=== PATIENT | female | born 1990 | race Hispanic/Latino ===

== ENCOUNTER 2016-10-22 10:26 | Observation (INO) | payer MEDICAID ==
[2016-10-22 10:46] VITALS: BMI 23.3
[2016-10-22 10:48] VITALS: TEMP 99; O2SAT 98
--- NOTE | 2016-10-22 11:31 | ED PDOC ---
Arrival/HPI - General Chief Complaint: Abdominal Pain Time Seen by Provider: 10/22/16 11:00 Historian: Patient - History of Present Illness Narrative History of Present Illness (Text): 10/22/16 11:20 A 26 year old female, who denies any significant past medical history, presents to the emergency department complaining of diffuse suprapubic pain since yesterday evening. Patient notes mild associated non bloody watery diarrhea, but denies any fever, nausea, vomiting, hematuria, vaginal bleeding, vaginal discharge, or any other complaints at this time. Patient last menstrual cycle was on 09/15/16. Patient is not a smoker, drinker or drug user. PMD: None Time/Duration: Other (8-16 hours) Symptom Onset: Sudden Symptom Course: Unchanged Quality: Other ("pain") Activities at Onset: Rest Context: Home Associated Symptoms (Text): mild diarrhea Past Medical History - Provider Review Nursing Documentation Reviewed: Yes - Past History Past History: No Previous - Infectious Disease Hx of Infectious Diseases: None - Tetanus Immunization Tetanus Immunization: Unknown - Renal Hx Kidney Stones: Yes - Psychiatric Hx Substance Use: No - Anesthesia Hx Anesthesia: No Family/Social History - Physician Review Nursing Documentation Reviewed: Yes Family/Social History: Unknown Family HX Smoking Status: Never Smoked Hx Alcohol Use: No Hx Substance Use: No Allergies/Home Meds Allergies/Adverse Reactions: Allergies No Known Allergies Allergy (Verified 10/22/16 10:46) Home Medications: Home Meds Medication Instructions Recorded Confirmed No Known Home Med 10/22/16 10/22/16 Review of Systems - Physician Review All systems were reviewed & negative as marked: Yes - Review of Systems Constitutional: absent: Fevers Gastrointestinal: Abdominal Pain, Diarrhea. absent: Nausea, Vomiting Genitourinary Female: absent: Hematuria, Vaginal Bleeding, Vaginal Discharge Physical Exam Vital Signs Reviewed: Yes Vital Signs Temp Pulse Resp BP Pulse Ox 10/22/16 13:05 67 18 116/61 98 10/22/16 11:38 69 18 118/65 98 10/22/16 10:46 99 F 73 16 120/78 98 Temperature: Afebrile Blood Pressure: Normal Pulse: Regular Respiratory Rate: Normal Appearance: Positive for: Well-Appearing, Non-Toxic, Comfortable Pain Distress: None Mental Status: Positive for: Alert and Oriented X 3 - Systems Exam Head: Present: Atraumatic, Normocephalic Pupils: Present: PERRL Extroacular Muscles: Present: EOMI Conjunctiva: Present: Normal Mouth: Present: Moist Mucous Membranes Neck: Present: Normal Range of Motion Respiratory/Chest: Present: Clear to Auscultation, Good Air Exchange. No: Respiratory Distress, Accessory Muscle Use Cardiovascular: Present: Regular Rate and Rhythm, Normal S1, S2. No: Murmurs Abdomen: Present: Tenderness (mild diffuse suprapubic tenderness with palpation ; no right lower quadrant tenderness; no left lower quadrant tenderness), Normal Bowel Sounds. No: Distention, Peritoneal Signs, Rebound, Guarding Back: Present: Normal Inspection Upper Extremity: Present: Normal Inspection. No: Cyanosis, Edema Lower Extremity: Present: Normal Inspection. No: Edema Neurological: Present: GCS=15, CN II-XII Intact, Speech Normal Skin: Present: Warm, Dry, Normal Color. No: Rashes Psychiatric: Present: Alert, Oriented x 3, Normal Insight, Normal Concentration Medical Decision Making ED Course and Treatment: 10/22/16 11:20 Impression: A 26 year old female with suprapubic pain. Differential Diagnosis include but are not limited to: ovarian cyst vs. gastritis Plan: -- Transvaginal Ultrasound -- Labs -- Toradol if negative for -- Reassess and disposition Prior Visits: Notes and results from previous visits were reviewed. pt aware of results of sonogram. pt sleeping throughout ER stay, appears comfortable and better.The patient last presented to the emergency department on 03/27/16 for evaluation of right flank pain. Patient CT at the time showed a small nonobstructing left renal stone, no ureteral stones or hydronephrosis; trace fluid in the pelvis most likely physiologic; no evidence of appendicitis; mild ileus, no obstruction. 10/22/16 16:49 - Lab Interpretations I have reviewed the lab results: Yes - Medication Orders Current Medication Orders: Discontinued Medications Ketorolac Tromethamine (Toradol) 30 mg IVP STAT STA Stop: 10/22/16 11:29 Last Admin: 10/22/16 11:54 Dose: 30 MG IVP Administration Document 10/22/16 11:54 OCS (Rec: 10/22/16 11:[address] [facility] [id number]) Charges for Administration # of IVP Administrations 1 ED OBSERVATION Date of observation admission: 10/22/16 Time of observation admission: 11:20 - Observation admission statement Patient is being placed in observation because:: suprapubic pain - Goals of Observation Goals of observation are:: pain control and obtain imaging - Progress Note Progress Note: 10/22/16 11:38 Patient urine negative, will give Toradol. 10/22/16 13:20 Transvaginal Ultrasound: Creator : Rosalinda Reyes MD COMPARISON: None available. FINDINGS: UTERUS: Measures 10.0 x 5.7 x 7.4 cm. Anteverted, normal in size and appearance. No fibroid or other mass lesion seen. ENDOMETRIUM: Measures 11 mm in diameter. There is a 5 mm cystic area in the posterior superior endometrium, nonspecific PICC and likely represent cystic change. There is also minimal fluid in the superior endometrial cavity. CERVIX: No cervical abnormality identified. RIGHT OVARY: Measures 3.3 x 1.2 x 3.3 cm. No solid mass. Normal flow. LEFT OVARY: Measures 3.8 x 1.8 x 3.2 cm. Normal flow. There is a 1.0 x 0.6 x 0.6 cm round echogenic lesion. FREE FLUID: No significant free fluid noted. OTHER FINDINGS: None. IMPRESSION: 1. No evidence of fibroid uterus. 2. 1.0 cm round lesion in the left ovary could represent a collapsed corpus luteum cyst or hemorrhagic cyst. A dermoid cyst could also have a similar appearance. Follow-up in 3 months interval is recommended to assess stability/ resolution. 10/22/16 13:25 On re-evaluation, the patient feels better and is in no acute distress. I have discussed the results and plan with the patient, who expresses understanding. Patient in agreement with plan to discharged home. Patient is stable for discharge. Patient was instructed to follow up with women health clinic in 1-2 days or return if symptoms worsen or new concerning symptoms arise. - Scribe Statement The provider has reviewed the documentation as recorded by the Alia Scales Provider Kerwinibrosamaria Attestation: All medical record entries made by the Scribe were at my direction and personally dictated by me. I have reviewed the chart and agree that the record accurately reflects my personal performance of the history, physical exam, medical decision making, and the department course for this patient. I have also personally directed, reviewed, and agree with the discharge instructions and disposition. Disposition/Present on Arrival - Present on Arrival Any Indicators Present on Arrival: No History of DVT/PE: No History of Uncontrolled Diabetes: No Urinary Catheter: No History of Decub. Ulcer: No History Surgical Site Infection Following: None - Disposition Have Diagnosis and Disposition been Completed?: Yes Diagnosis: Ovarian cyst Disposition: HOME/ ROUTINE Disposition Time: 13:25 Patient Plan: Discharge Condition: IMPROVED
[2016-10-22 11:39] VITALS: RESP 18
[2016-10-22 11:46] LABS: URINE BILIRUBIN NEGATIVE (NEGATIVE); URINE BLOOD NEGATIVE (NEGATIVE); URINE GLUCOSE (UA) NEGATIVE (NEGATIVE); URINE KETONE NEGATIVE (NEGATIVE); URINE LEUKOCYTE ESTERASE NEGATIVE Leu/uL (NEGATIVE); URINE PROTEIN NEGATIVE mg/dL (<30 mg/dL); URINE UROBILINOGEN 0.2 E.U./dL (<1 E.U./dL)
[2016-10-22 11:48] LABS: URINE APPEARANCE CLEAR (CLEAR); URINE COLOR YELLOW (YELLOW)
[2016-10-22 11:58] LABS: ADD MANUAL DIFF? NO
[2016-10-22 12:08] LABS: BASO # 0.02 K/mm3 (0.0-2.0); BASO % 0.3 % (0.0-3.0); EOS % 0.4 % (1.5-5.0); GRAN # 4.38 (1.4-6.5); HEMATOCRIT 35.9 % (36.0-48.0); LYMPH # 2.3 (1.2-3.4); LYMPH % 31.7 % (22.0-35.0); MEAN CELL VOLUME 85.9 fL (80.0-105.0); MEAN CORPUSCULAR HEMOGLOBIN 28.7 pg (25.0-35.0); MEAN CORPUSCULAR HGB CONC 33.4 g/dl (31.0-37.0); MEAN PLATELET VOLUME 9.8 fl (7.0-11.0); MONO # 0.5 (0.1-0.6); MONO % 6.6 % (1.0-6.0); PLATELET COUNT 260 10^3/uL (120.0-450.0); RED CELL DISTRIBUTION WIDTH 13.3 % (11.5-14.5); WHITE BLOOD COUNT 7.2 10^3/ul (4.5-11.0)
[2016-10-22 12:10] LABS: ALKALINE PHOSPHATASE 43 U/L (38-133); ALT/SGPT 29 U/L (7-56); AST/SGOT 19 U/L (15-39); BILIRUBIN,TOTAL 0.5 mg/dL (0.2-1.3); BLOOD UREA NITROGEN 9 mg/dL (7-21); CALCIUM 9.2 mg/dL (8.4-10.5); CARBON DIOXIDE 26 mmol/L (21-33); CHLORIDE 103 mmol/L (98-107); GFR AFRICAN-AMERICAN > 60; GLUCOSE,RANDOM 103 mg/dL (70-110); POTASSIUM 4.1 mmol/L (3.6-5.0); SODIUM 137 mmol/L (132-148); TOTAL PROTEIN 7.9 g/dL (5.8-8.3)
[2016-10-22 13:05] VITALS: BP 116/61; PULSE 67
--- NOTE | 2016-10-22 13:20 | US ---
HISTORY: Pelvic pain COMPARISON: None available. TECHNIQUE: Transvaginal pelvic ultrasound was performed. FINDINGS: UTERUS: Measures 10.0 x 5.7 x 7.4 cm. Anteverted, normal in size and appearance. No fibroid or other mass lesion seen. ENDOMETRIUM: Measures 11 mm in diameter. There is a 5 mm cystic area in the posterior superior endometrium, nonspecific PICC and likely represent cystic change. There is also minimal fluid in the superior endometrial cavity. CERVIX: No cervical abnormality identified. RIGHT OVARY: Measures 3.3 x 1.2 x 3.3 cm. No solid mass. Normal flow. LEFT OVARY: Measures 3.8 x 1.8 x 3.2 cm. Normal flow. There is a 1.0 x 0.6 x 0.6 cm round echogenic lesion. FREE FLUID: No significant free fluid noted. OTHER FINDINGS: None. IMPRESSION: 1. No evidence of fibroid uterus. 2. 1.0 cm round lesion in the left ovary could represent a collapsed corpus luteum cyst or hemorrhagic cyst. A dermoid cyst could also have a similar appearance. Follow-up in 3 months interval is recommended to assess stability/resolution.
== END 2016-10-22 13:51 | disposition home or self-care (01) ==
LOC: ED 10:26 → EROBSV 11:29
PROVIDERS: ADMIT Emergency Medicine; ATTEND Emergency Medicine
DX: N83.202 Unspecified ovarian cyst, left side (principal)
CPT/HCPCS: 76830; 80053; 81003; 85025; 87086; 96374; 99283; G0378; J1885

== ENCOUNTER 2016-12-14 10:31 | Emergency (ER) | payer MEDICAID ==
[2016-12-14 10:32] VITALS: BMI 23.3
[2016-12-14 10:46] VITALS: RESP 18; TEMP 99; O2SAT 98
[2016-12-14] MEDS ORDERED: Sodium Chloride 0.9% 1,000 ML IV STA (11:51)
[2016-12-14 12:17] VITALS: BP 115/71; PULSE 89
[2016-12-14 13:29] LABS: ADD MANUAL DIFF? NO
[2016-12-14 13:32] LABS: URINE BILIRUBIN NEGATIVE (NEGATIVE); URINE BLOOD NEGATIVE (NEGATIVE); URINE GLUCOSE (UA) NEGATIVE (NEGATIVE); URINE KETONE TRACE mg/dL (NEGATIVE); URINE LEUKOCYTE ESTERASE TRACE Leu/uL (NEGATIVE); URINE PROTEIN TRACE mg/dL (<30 mg/dL); URINE UROBILINOGEN 0.2 E.U./dL (<1 E.U./dL)
[2016-12-14 13:36] LABS: URINE APPEARANCE SL CLOUDY (CLEAR); URINE COLOR YELLOW (YELLOW)
[2016-12-14 13:36] LABS: BASO # 0.02 K/mm3 (0.0-2.0); BASO % 0.3 % (0.0-3.0); EOS % 0.1 % (1.5-5.0); GRAN # 5.16 (1.4-6.5); GRAN % 73.5 % (50.0-68.0); HEMATOCRIT 35.2 % (36.0-48.0); LYMPH # 1.1 (1.2-3.4); LYMPH % 15.9 % (22.0-35.0); MEAN CELL VOLUME 86.1 fL (80.0-105.0); MEAN CORPUSCULAR HEMOGLOBIN 29.3 pg (25.0-35.0); MEAN CORPUSCULAR HGB CONC 34.1 g/dl (31.0-37.0); MEAN PLATELET VOLUME 9.6 fl (7.0-11.0); MONO # 0.7 (0.1-0.6); MONO % 10.2 % (1.0-6.0); PLATELET COUNT 205 10^3/uL (120.0-450.0)
[2016-12-14 13:44] LABS: URINE BACTERIA FEW (NEG); URINE RBC NEGATIVE /hpf (0-2)
[2016-12-14 13:46] LABS: ALKALINE PHOSPHATASE 56 U/L (38-133); ALT/SGPT 29 U/L (7-56); AST/SGOT 27 U/L (15-39); BILIRUBIN,TOTAL 0.4 mg/dL (0.2-1.3); BLOOD UREA NITROGEN 8 mg/dL (7-21); CALCIUM 9.5 mg/dL (8.4-10.5); CARBON DIOXIDE 24 mmol/L (21-33); CHLORIDE 102 mmol/L (98-107); GFR AFRICAN-AMERICAN > 60; GLUCOSE,RANDOM 77 mg/dL (70-110); POTASSIUM 4.1 mmol/L (3.6-5.0); SODIUM 135 mmol/L (132-148); TOTAL PROTEIN 7.8 g/dL (5.8-8.3)
--- NOTE | 2016-12-14 14:01 | ED PDOC ---
Arrival/HPI - General Historian: Patient - History of Present Illness Time/Duration: 24 hours Symptom Onset: Sudden Symptom Course: Unchanged Quality: Other Activities at Onset: Rest Context: Home - General Chief Complaint: Fever Time Seen by Provider: 12/14/16 11:20 - History of Present Illness Narrative History of Present Illness (Text): 12/14/16 11:20 A 26 year old 9 week female presents to the emergency department complaining of feeling hot and coughing yesterday and dizziness today. Patient says she felt hot but did not have a fever. She denies any urinary/bowel changes , vaginal bleeding, vaginal discharge, abdominal pain, or any other complaints at this time. Patient reports she previously had a ultrasound at [facility], [place] which showed a IUP at 9 weeks and she has care. PMD: Dr. Avel IBARRA: [place] (from the clinic) (Jenni Singh PA-C) Past Medical History - Provider Review Nursing Documentation Reviewed: Yes - Past History Past History: No Previous - Infectious Disease Hx of Infectious Diseases: None - Tetanus Immunization Tetanus Immunization: Unknown - Renal Hx Kidney Stones: Yes - Psychiatric Hx Substance Use: No - Anesthesia Hx Anesthesia: No Family/Social History - Physician Review Nursing Documentation Reviewed: Yes Family/Social History: Unknown Family HX Smoking Status: Never Smoked Hx Alcohol Use: No Hx Substance Use: No Allergies/Home Meds Allergies/Adverse Reactions: Allergies No Known Allergies Allergy (Verified 12/14/16 10:46) Review of Systems - Physician Review All systems were reviewed & negative as marked: Yes - Review of Systems Constitutional: Other (feeling hot). absent: Fevers Respiratory: Cough Gastrointestinal: absent: Stool Changes, Constipation, Diarrhea Genitourinary Female: absent: Dysuria, Frequency, Hematuria, Urine Output Changes, Vaginal Bleeding, Vaginal Discharge Neurological: Dizziness Physical Exam Vital Signs Reviewed: Yes Temperature: Afebrile Blood Pressure: Normal Pulse: Regular Respiratory Rate: Normal Appearance: Positive for: Well-Appearing, Non-Toxic, Comfortable Pain Distress: None Mental Status: Positive for: Alert and Oriented X 3 - Systems Exam Head: Present: Atraumatic, Normocephalic Pupils: Present: PERRL Extroacular Muscles: Present: EOMI Conjunctiva: Present: Normal Mouth: Present: Dry Neck: Present: Normal Range of Motion Respiratory/Chest: Present: Clear to Auscultation, Good Air Exchange. No: Respiratory Distress, Accessory Muscle Use Cardiovascular: Present: Regular Rate and Rhythm, Normal S1, S2. No: Murmurs Abdomen: Present: Normal Bowel Sounds. No: Tenderness, Distention, Peritoneal Signs Back: Present: Normal Inspection Upper Extremity: Present: Normal Inspection. No: Cyanosis, Edema Lower Extremity: Present: Normal Inspection. No: Edema Neurological: Present: GCS=15, CN II-XII Intact, Speech Normal Skin: Present: Warm, Dry, Normal Color. No: Rashes Psychiatric: Present: Alert, Oriented x 3, Normal Insight, Normal Concentration Vital Signs Temp Pulse Resp BP Pulse Ox 12/14/16 12:17 89 18 115/71 98 12/14/16 11:22 95 H 18 113/69 98 12/14/16 10:42 99 F 95 H 18 113/69 98 Medical Decision Making - Lab Interpretations I have reviewed the lab results: Yes (Pt noted to have a UTI, given marcobid.) ED Course and Treatment: I was available for consultation during PA evaluation. The chart was reviewed by me, and I agree with disposition. The documented history was done by the physician chummer. The documented physical exam was done by the physician chummer. The documented procedures were done by the physician chummer. (Jake Headley) 12/14/16 13:58 26 yo F ~ 3 months c/o feeling dizzy today and hot yesterday. Plan: -- Labs -- IV fluids -- EKG -- Urinalysis -- Zofran -- Reassess and disposition 12/14/16 14:09 Patient refuses EKG. CBC and UA results reviewed, CMP still pending at this time. Patient is still receiving NS of hydration, 600 cc of NS still needs to infuse, however the patient refuses to stay any longer in the ER. Patient refuses further care, evaluation or treatment in the ER. Patient informed of the reasons for the following and planned treatment, which patient understands, however still refuses. Patient informed of the risk and benefits of treatment. Informed that the risk could include worsening of current conditions, undiagnosed conditions, disability or even . Patient understands the following risk and the benefits of treatment. Patient has the capacity to make decisions and still refuses treatment by RN, PA and ER MD. Patient encouraged to return to the ER at any time and to follow up with pmd. Patient left without her discharge instructions, and without signing AMA form, she also left without her prescription for Macrobid. (Francisco KAYE,Jenni Cabrera) - Lab Interpretations Lab Results: 12/14/16 13:15 12/14/16 13:15 Lab Results 12/14/16 13:15: Sodium 135, Potassium 4.1, Chloride 102, Carbon Dioxide 24, Anion Gap 13, BUN 8, Creatinine 0.6, Est GFR ( Amer) > 60, Est GFR (Non- Af Amer) > 60, Random Glucose 77, Calcium 9.5, Total Bilirubin 0.4, AST 27, ALT 29, Alkaline Phosphatase 56, Total Protein 7.8, Albumin 3.9, Globulin 3.9, Albumin/Globulin Ratio 1.0 L 12/14/16 13:15: WBC 7.0, RBC 4.09, Hgb 12.0, Hct 35.2 L, MCV 86.1, MCH 29.3, MCHC 34.1, RDW 13.0, Plt Count 205, MPV 9.6, Gran % 73.5 H, Lymph % (Auto) 15.9 L, [place] % (Auto) 10.2 H, Eos % (Auto) 0.1 L, Baso % (Auto) 0.3, Gran # 5.16, Lymph # 1.1 L, [place] # 0.7 H, Eos # 0.0, Baso # 0.02 12/14/16 13:00: Urine Color Yellow, Urine Appearance Sl cloudy, Urine pH 6.0, Ur Specific [facility] >= 1.030, Urine Protein Trace H, Urine Glucose (UA) Negative , Urine Ketones Trace H, Urine Blood Negative, Urine Nitrate Negative, Urine Bilirubin Negative, Urine Urobilinogen 0.2, Ur Leukocyte Esterase Trace H, Urine RBC Negative, Urine WBC 1 - 3, Ur Epithelial Cells 6 - 8, Urine Bacteria Few, Urine Other Mucus - Medication Orders Current Medication Orders: Discontinued Medications Sodium Chloride (Sodium Chloride 0.9%) 1,000 mls @ 1,000 mls/hr IV .Q1H STA Stop: 12/14/16 12:50 Last Admin: 12/14/16 13:17 Dose: 1,000 mls/hr Metoclopramide HCl (Reglan) 10 mg IVP STAT STA Stop: 12/14/16 11:52 Last Admin: 12/14/16 13:17 Dose: 10 mg - PA / PHOTOENGRAVER / Resident Statement MD/DO has reviewed & agrees with the documentation as recorded. - Scribe Statement The provider has reviewed the documentation as recorded by the Scribe - Scribe Statement Gregory Scales Provider Scribe Attestation: All medical record entries made by the Scribe were at my direction and personally dictated by me. I have reviewed the chart and agree that the record accurately reflects my personal performance of the history, physical exam, medical decision making, and the department course for this patient. I have also personally directed, reviewed, and agree with the discharge instructions and disposition. (Francisco KAYE,Jenni Cabrera) Disposition/Present on Arrival - Present on Arrival Any Indicators Present on Arrival: No History of DVT/PE: No History of Uncontrolled Diabetes: No Urinary Catheter: No History of Decub. Ulcer: No History Surgical Site Infection Following: None - Disposition Have Diagnosis and Disposition been Completed?: Yes Disposition Time: 13:59 Patient Plan: Discharge - Disposition Diagnosis: UTI (urinary tract infection), Dizziness Disposition: AGAINST MEDICAL ADVICE Condition: STABLE Discharge Instructions (ExitCare): Lightheadedness (ED), Dizziness (ED), Against Medical Advice (ED) Print Language: TAIWANESE Additional Instructions: Thank you for letting us take care of you today. You were treated for dizziness , UTI. The emergency medical care you received today was directed at your acute symptoms. If you were prescribed any medication, please fill it and take as directed. It may take several days for your symptoms to resolve. Return to the Emergency Department if your symptoms worsen, do not improve, or if you have any other problems. Please contact your OB doctor in 2 days for re-evaluation and follow up. Bring any paperwork you were given at discharge with you along with any medications you are taking to your follow up visit. Our treatment cannot replace ongoing medical care by a primary care provider (PCP) outside of the emergency department. Thank you for allowing the [facility] team to be part of your care today. Prescriptions: Nitrofurantoin Macrocrystals [Macrobid] 100 mg PO BID #20 cap Referrals: Avel,Lalo D, MD [Primary Care Provider] - Follow up with primary
== END 2016-12-14 13:55 | disposition left against medical advice (07) ==
LOC: ED 10:31
DX: O23.41 Unspecified infection of urinary tract in pregnancy, first trimester (principal); Z3A.09 9 weeks gestation of pregnancy; R42 Dizziness and giddiness
CPT/HCPCS: 80053; 81001; 85025; 87086; 96374; 99283; J2765; J7040

== ENCOUNTER 2016-12-15 09:14 | Emergency (ER) | payer MEDICAID ==
[2016-12-15 09:15] VITALS: BMI 23.3
[2016-12-15 09:47] VITALS: RESP 16; TEMP 98.5; O2SAT 100
--- NOTE | 2016-12-15 10:01 | ED PDOC ---
Arrival/HPI - General Historian: Patient - General Chief Complaint: Dizziness/Lightheaded Time Seen by Provider: 12/15/16 09:47 - History of Present Illness Narrative History of Present Illness (Text): 12/15/16 09:58 26yo female present with complaint of dizziness, nausea, vomiting, subra pubic pain. States she was seen here yesterday for same complaint. States she was told she have UTI, but left before she was DC home. She notes that she has been having nausea and vomiting since she became . She takes antiemetics at home. She denies fever, chills, sick contact, vaginal bleeding, any other complaint. (Neeta Wilson) Past Medical History - Provider Review Nursing Documentation Reviewed: Yes - Past History Past History: No Previous - Infectious Disease Hx of Infectious Diseases: None - Tetanus Immunization Tetanus Immunization: Unknown - Renal Hx Kidney Stones: Yes - Psychiatric Hx Substance Use: No - Anesthesia Hx Anesthesia: No Family/Social History - Physician Review Nursing Documentation Reviewed: Yes Family/Social History: Unknown Family HX Smoking Status: Never Smoked Hx Alcohol Use: No Hx Substance Use: No Allergies/Home Meds Allergies/Adverse Reactions: Allergies No Known Allergies Allergy (Verified 12/15/16 09:38) Home Medications: Home Meds Medication Instructions Recorded Confirmed Vit No.126/Iron/Folic 1 tab PO DAILY 12/15/16 12/15/16 [Classic Tablet] Review of Systems - Physician Review All systems were reviewed & negative as marked: Yes - Review of Systems Constitutional: Normal Eyes: Normal ENT: Normal Respiratory: Normal Cardiovascular: Normal Gastrointestinal: Abdominal Pain, Nausea, Vomiting Genitourinary Female: Normal Musculoskeletal: Normal Skin: Normal Neurological: Dizziness Endocrine: Normal Hemo/Lymphatic: Normal Psychiatric: Normal Physical Exam Vital Signs Reviewed: Yes Temperature: Afebrile Blood Pressure: Normal Pulse: Regular Respiratory Rate: Normal Appearance: Positive for: Well-Appearing, Non-Toxic, Comfortable Pain Distress: None Mental Status: Positive for: Alert and Oriented X 3 - Systems Exam Head: Present: Atraumatic, Normocephalic Pupils: Present: PERRL Extroacular Muscles: Present: EOMI Conjunctiva: Present: Normal Mouth: Present: Moist Mucous Membranes Neck: Present: Normal Range of Motion Respiratory/Chest: Present: Clear to Auscultation, Good Air Exchange. No: Respiratory Distress, Accessory Muscle Use Cardiovascular: Present: Regular Rate and Rhythm, Normal S1, S2. No: Murmurs Abdomen: Present: Normal Bowel Sounds. No: Tenderness, Distention, Peritoneal Signs, Rebound, Guarding, McBurney's Point Tender, Rovsing's Sign Present Back: Present: Normal Inspection Upper Extremity: Present: Normal Inspection. No: Cyanosis, Edema Lower Extremity: Present: Normal Inspection. No: Edema Neurological: Present: GCS=15, CN II-XII Intact, Speech Normal, Motor Func Grossly Intact, Normal Sensory Function, Normal Cerebellar Funct, Other (Soft) Skin: Present: Warm, Dry, Normal Color. No: Rashes Psychiatric: Present: Alert, Oriented x 3, Normal Insight, Normal Concentration Vital Signs Temp Pulse Resp BP Pulse Ox 12/15/16 11:45 92 H 16 130/88 100 12/15/16 09:45 98.5 F 96 H 16 125/90 100 Medical Decision Making ED Course and Treatment: I was available for consultation during PA evaluation. The chart was reviewed by me, and I agree with disposition. The documented history was done by the physician content administrator. The documented physical exam was done by the physician content administrator. The documented procedures were done by the physician content administrator. (Jake Headley) 12/15/16 20:56 PT was comfortable in ED. She was noted to tolerate juice and fluid in ED. Her lab from yesterday was reviewed and it was WNL. She left before her discharge and prescription was given. She was given Macrobid rx . age US IUP at 12 wks 4days. Result was DW the pt. She was advised to drink plenty of fluid. She have OB and was advised to f/u with her OB (Neeta Wilson) - RAD Interpretation Radiology Orders: 12/15/16 10:07 AGE [US] Stat - Medication Orders Current Medication Orders: Discontinued Medications Nitrofurantoin Macrocrystals (Macrobid) 100 mg PO ONCE STA Stop: 12/15/16 09:58 Last Admin: 12/15/16 10:49 Dose: 100 mg Disposition/Present on Arrival - Present on Arrival Any Indicators Present on Arrival: No History of DVT/PE: No History of Uncontrolled Diabetes: No Urinary Catheter: No History of Decub. Ulcer: No History Surgical Site Infection Following: None - Disposition Have Diagnosis and Disposition been Completed?: Yes Disposition Time: 12:30 Patient Plan: Discharge - Disposition Diagnosis: , UTI (urinary tract infection) Disposition: HOME/ ROUTINE Condition: STABLE Discharge Instructions (ExitCare): Urinary Tract Infection in Women (ED) Additional Instructions: Follow up with your Doctor/OB Return to ED for any new or worsening symptoms Prescriptions: Nitrofurantoin Macrocrystals [Macrobid] 100 mg PO BID #14 cap Referrals: Rula Ghotra [Primary Care Provider] - Follow up with primary
--- NOTE | 2016-12-15 12:22 | US ---
PROCEDURE: OB Pelvic Ultrasound HISTORY: Abdominal pain COMPARISON: None available. FINDINGS: UTERUS: Gestational sac: Single intrauterine gestation. Heart rate: 157 bpm. age (Ultrasound estimated): 12 weeks and 3 days Padma-gestational hemorrhage: None. Date of delivery (Ultrasound estimated) : 06/26/2017 Uterus measures 16.9 x 7.6 x 10.7 cm. Normal in size and appearance. CERVIX: Long and closed. Measures 4.6 cm. No cervical abnormality seen. RIGHT OVARY: Measures 2.6 x 1.4 x 2.9 cm. No mass lesion. Normal flow. LEFT OVARY: Measures 2.6 x 1.6 x 2.3 cm. No solid mass. Normal flow. FREE FLUID: None. OTHER FINDINGS: None. IMPRESSION: Single live intrauterine gestation with mean gestational age of 12 weeks and 3 days. Estimated date of delivery by ultrasound is 06/26/2017. The ultrasound dates correspond with the clinical dates.
[2016-12-15 12:57] VITALS: BP 130/88; PULSE 92
== END 2016-12-15 12:40 | disposition home or self-care (01) ==
LOC: ED 09:14
DX: O23.41 Unspecified infection of urinary tract in pregnancy, first trimester (principal); Z3A.12 12 weeks gestation of pregnancy

== ENCOUNTER 2017-02-22 13:16 | Emergency (ER) | payer MEDICAID ==
[2017-02-22 13:45] VITALS: BMI 24.0
[2017-02-22 13:48] VITALS: TEMP 98.5
--- NOTE | 2017-02-22 14:30 | ED PDOC ---
Arrival/HPI - General Chief Complaint: Abdominal Pain Time Seen by Provider: 02/22/17 13:41 - History of Present Illness Narrative History of Present Illness (Text): 02/22/17 14:27 26yo female with lower abdominal pain described as cramping. Pt states she is about 22 weeks . Denies n/v, denies vaginal pain or bleeding, denies freq or burning on urination. No other complaints. Past Medical History - Provider Review Nursing Documentation Reviewed: Yes - Past History Past History: No Previous - Infectious Disease Hx of Infectious Diseases: None - Tetanus Immunization Tetanus Immunization: Unknown - Renal Hx Kidney Stones: Yes - Psychiatric Hx Substance Use: No - Anesthesia Hx Anesthesia: No Family/Social History Family/Social History: Unknown Family HX Smoking Status: Never Smoked Hx Alcohol Use: No Hx Substance Use: No Allergies/Home Meds Allergies/Adverse Reactions: Allergies No Known Allergies Allergy (Verified 12/15/16 09:38) Home Medications: Home Meds Medication Instructions Recorded Confirmed Vit No.126/Iron/Folic 1 tab PO DAILY 12/15/16 02/22/17 [Classic Tablet] Physical Exam - Physical Exam Narrative Physical Exam (Text): 02/22/17 14:31 - Review of Systems Constitutional: Normal. absent: Fatigue, Weight Change, Fevers Eyes: Normal ENT: denies sore throat, denies tristhmus Respiratory: Normal. absent: SOB, Cough, Sputum Cardiovascular: absent: Chest Pain, Palpitations, Syncope Gastrointestinal: Abdominal pain. absent: Diarrhea, Nausea, Vomiting Genitourinary: Normal. absent: Dysuria, Frequency, Hematuria, vaginal bleeding Musculoskeletal: Normal. absent: Arthralgias, Back Pain, Neck Pain Skin: no rashes, no erythema Neurological: absent: Focal Weakness Endocrine: Normal Hemo/Lymphatic: Normal Psychiatric: No suicidal or homicidal ideations Physical exam Patient appears age appropriate in no distress, speaking full sentences without difficulty - Systems Exam Head: Present: Atraumatic, Normocephalic Pupils: Present: PERRL Extroacular Muscles: Present: EOMI Conjunctiva: Present: Normal Mouth: Present: Moist Mucous Membranes Neck: Present: Normal Range of Motion. No: MIDLINE TENDERNESS, Paraspinal Tenderness Respiratory/Chest: Present: Clear to Auscultation, Good Air Exchange. No: Respiratory Distress, Accessory Muscle Use, Tachypneic Cardiovascular: Present: Regular Rate and Rhythm, Normal S1, S2, Peripheal Pulses Present. No: Murmurs Abdomen: Present: Gravid abdomen, Normal Bowel Sounds. No: Tenderness, Distention, Peritoneal Signs, Rebound, Guarding Back: Present: Normal Inspection. No: Midline Tenderness, Paraspinal Tenderness Upper Extremity: Present: Normal Inspection. No: Cyanosis, Edema Lower Extremity: Present: Normal Inspection. No: Edema Neurological: Present: GCS=15, Speech Normal, cranial nerves II through XII fully intact with no cerebellar abnormality, neurosensory fully intact. No focal neurological deficits. Skin: Present: Warm, Dry, Normal Color. No: Rashes Lymphatic: Present: OX3, NI, NC Psychiatric: Present: Alert, Oriented x 3, Normal Insight, Normal Concentration Vital Signs Reviewed: Yes Vital Signs Temp Pulse Resp BP Pulse Ox 02/22/17 16:40 69 18 110/74 100 02/22/17 15:16 71 18 108/71 100 02/22/17 13:48 98.5 F 76 18 106/70 100 Temperature: Afebrile Blood Pressure: Normal Pulse: Regular Respiratory Rate: Normal Appearance: Positive for: Well-Appearing Pain Distress: None Mental Status: Positive for: Alert and Oriented X 3 Medical Decision Making ED Course and Treatment: 02/22/17 14:34 26yo female, states she is 22 weeks , with abd pain. No acute findings on physical exam. US and labs ordered pt in no distress no contractions Report Date : 02/22/2017 17:18:54 Procedure: ultrasound Creator : Genesis Matias MD Impression: Single living fetus with a composite sonographic age of 21 weeks 6 days. Estimated heart rate 144.9 beats per min. 02/22/17 17:35 pt in no distress and denies complaints at this time states she has no abd pain, no vaginal bleeding or spotting abd soft pt instructed to f/u with her OB specialist outpatient states she feels comfortable being dc'd home with outpatient f/u Pt states she understands to return to the ER right away for new or worsening symptoms or for inability to f/u with PMD or specialist as instructed. Patient states that she fully agrees with and understands discharge instructions. States that she agrees with the plan and disposition. Verbalized and repeated discharge instructions and plan. I have given the patient opportunity to ask any additional questions. - Lab Interpretations Lab Results: 02/22/17 14:28 02/22/17 14:28 Lab Results 02/22/17 14:28: Beta HCG, Quant 7181.00 H 02/22/17 14:28: Sodium 134, Potassium 4.0, Chloride 104, Carbon Dioxide 22, Anion Gap 12, BUN 11, Creatinine 0.6, Est GFR ( Amer) > 60, Est GFR (Non- Af Amer) > 60, Random Glucose 94, Calcium 9.0, Total Bilirubin 0.2, AST 25, ALT 33, Alkaline Phosphatase 46, Total Protein 6.8, Albumin 3.5, Globulin 3.3, Albumin/Globulin Ratio 1.1 02/22/17 14:28: PT 10.5, INR 0.97, APTT 26.1 02/22/17 14:28: WBC 9.8 D, RBC 3.51, Hgb 10.5 L, Hct 31.3 L, MCV 89.2, MCH 29.9 , MCHC 33.5, RDW 13.6, Plt Count 179, MPV 9.6, Gran % 72.3 H, Lymph % (Auto) 21.1 L, [place] % (Auto) 6.3 H, Eos % (Auto) 0.2 L, Baso % (Auto) 0.1, Gran # 7.11 H, Lymph # 2.1, [place] # 0.6, Eos # 0.0, Baso # 0.01 02/22/17 14:23: Urine Color Yellow, Urine Appearance Sl cloudy, Urine pH 6.5, Ur Specific [place] 1.020, Urine Protein Negative, Urine Glucose (UA) Negative, Urine Ketones Negative, Urine Blood Negative, Urine Nitrate Negative, Urine Bilirubin Negative, Urine Urobilinogen 0.2, Ur Leukocyte Esterase Small H, Urine RBC Negative, Urine WBC 1 - 3, Ur Epithelial Cells 6 - 8, Urine Bacteria Few, Urine HCG, Qual Positive - RAD Interpretation Radiology Orders: 02/22/17 14:15 AGE [US] Stat Disposition/Present on Arrival - Present on Arrival Any Indicators Present on Arrival: No History of DVT/PE: No History of Uncontrolled Diabetes: No Urinary Catheter: No History of Decub. Ulcer: No History Surgical Site Infection Following: None - Disposition Have Diagnosis and Disposition been Completed?: Yes Diagnosis: Abdominal pain affecting Disposition: HOME/ ROUTINE Disposition Time: 17:38 Patient Plan: Discharge Condition: GOOD Discharge Instructions (ExitCare): Abdominal Pain in (ED) Additional Instructions: PLEASE RETURN TO THE EMERGENCY DEPARTMENT FOR NEW OR WORSENING SYMPTOMS. RETURN RIGHT AWAY IF YOU CANNOT FOLLOW UP WITH YOUR PRIMARY CARE DOCTOR, CLINIC, OR SPECIALIST IN 1-2 DAYS. Please take [id number] Motrin or Tylenol for pain Please take vitamins Referrals: [facility] Rekunal, [Primary Care Provider] - Follow up with primary Dee Dee Hollins MD [Staff Provider] - Follow up with [facility] [Outside] - Follow up with primary Forms: [employer] (Nepalese), WORK NOTE
[2017-02-22 14:37] LABS: BASO # 0.01 K/mm3 (0.0-2.0); BASO % 0.1 % (0.0-3.0); EOS % 0.2 % (1.5-5.0); GRAN # 7.11 (1.4-6.5); GRAN % 72.3 % (50.0-68.0); HEMATOCRIT 31.3 % (36.0-48.0); LYMPH # 2.1 (1.2-3.4); LYMPH % 21.1 % (22.0-35.0); MEAN CELL VOLUME 89.2 fl (80.0-105.0); MEAN CORPUSCULAR HEMOGLOBIN 29.9 pg (25.0-35.0); MEAN CORPUSCULAR HGB CONC 33.5 g/dl (31.0-37.0); MEAN PLATELET VOLUME 9.6 fl (7.0-11.0); MONO # 0.6 (0.1-0.6); MONO % 6.3 % (1.0-6.0); RED CELL DISTRIBUTION WIDTH 13.6 % (11.5-14.5); WHITE BLOOD COUNT 9.8 10^3/ul (4.5-11.0)
[2017-02-22 14:37] LABS: PH,URINE 6.5 (4.7-8.0); URINE BILIRUBIN NEGATIVE (NEGATIVE); URINE BLOOD NEGATIVE (NEGATIVE); URINE GLUCOSE (UA) NEGATIVE (NEGATIVE); URINE KETONE NEGATIVE (NEGATIVE); URINE LEUKOCYTE ESTERASE SMALL Leu/uL (NEGATIVE); URINE PROTEIN NEGATIVE mg/dL (<30 mg/dL); URINE UROBILINOGEN 0.2 E.U./dL (<1 E.U./dL)
[2017-02-22 14:40] LABS: URINE APPEARANCE SL CLOUDY (CLEAR); URINE COLOR YELLOW (YELLOW)
[2017-02-22 14:47] LABS: URINE BACTERIA FEW (NEG); URINE RBC NEGATIVE /hpf (0-2)
[2017-02-22 14:47] LABS: ALB/GLOB RATIO 1.1 (1.1-1.8); ALKALINE PHOSPHATASE 46 U/L (38-133); ALT/SGPT 33 U/L (7-56); AST/SGOT 25 U/L (15-39); BILIRUBIN,TOTAL 0.2 mg/dL (0.2-1.3); BLOOD UREA NITROGEN 11 mg/dL (7-21); CARBON DIOXIDE 22 mmol/L (21-33); CHLORIDE 104 mmol/L (98-107); GFR AFRICAN-AMERICAN > 60; GLUCOSE,RANDOM 94 mg/dL (70-110); SODIUM 134 mmol/L (132-148); TOTAL PROTEIN 6.8 g/dL (5.8-8.3)
[2017-02-22 14:49] LABS: INR 0.97 (0.93-1.08); PARTIAL THROMBOPLASTIN TIME 26.1 Seconds (23.7-30.8)
--- NOTE | 2017-02-22 17:20 | US ---
age ultrasound Comparison: age ultrasound performed 12/15/16 Technique: Real-time ultrasound was performed through the pelvis. Findings: There is a single living fetus in cephalic presentation. Posterior placenta. The placenta is not previa. Bilateral ovaries are not visualized. There are no adnexal masses or cysts evident. Cervix length measures approximately 4.1 cm. The study was performed for the emergent evaluation of abdominal pain, and the whole anatomic survey of the fetus was not performed. This should be performed on an outpatient elective basis as clinically warranted. Measurements and calculations: Fetus has a composite sonographic age of 21 weeks 6 days. This calculation is based on the biparietal diameter, head circumference, abdominal circumference, and femur length. Estimated heart rate 144.9 beats per min. Impression: Single living fetus with a composite sonographic age of 21 weeks 6 days. Estimated heart rate 144.9 beats per min.
[2017-02-22 18:07] VITALS: BP 111/76; PULSE 65; RESP 17; O2SAT 99
== END 2017-02-22 18:06 | disposition home or self-care (01) ==
LOC: ED 13:16
DX: O26.892 Other specified pregnancy related conditions, second trimester (principal); Z3A.22 22 weeks gestation of pregnancy; R10.30 Lower abdominal pain, unspecified

== ENCOUNTER 2018-04-13 09:18 | Emergency (ER) | payer MEDICAID ==
[2018-04-13 09:33] VITALS: O2SAT 100; BMI 27.1
--- NOTE | 2018-04-13 10:03 | ED PDOC ---
Arrival/HPI - General Historian: Patient - History of Present Illness Narrative History of Present Illness (Text): 04/13/18 10:00 27yo female with no pmhx who present with one month history of constant mid back pain. She denies any exacerbating or relieving symptoms. Denies urinary symptoms, saddle anesthesia, focal weakness, urinary/fecal incontinence, abdominal pain, hematuria, nausea, vomiting, abdominal pain, fever, chills, any other complaint. <Neeta Wilson A - Last Filed: 04/13/18 19:53> <Mitchel Valdovinos - Last Filed: 04/18/18 18:45> - General Chief Complaint: Back Pain Time Seen by Provider: 04/13/18 09:34 Past Medical History - Provider Review Nursing Documentation Reviewed: Yes - Past History Past History: No Previous - Infectious Disease Hx of Infectious Diseases: None - Tetanus Immunization Tetanus Immunization: Unknown - Renal Hx Kidney Stones: Yes - Psychiatric Hx Substance Use: No - Anesthesia Hx Anesthesia: No <Neeta Wilson A - Last Filed: 04/13/18 19:53> Family/Social History - Physician Review Nursing Documentation Reviewed: Yes Family/Social History: Unknown Family HX Smoking Status: Never Smoked Hx Alcohol Use: No Hx Substance Use: No <Neeta Wilson A - Last Filed: 04/13/18 19:53> Allergies/Home Meds <Neeta Wilson A - Last Filed: 04/13/18 19:53> <Mitchel Valdovinos - Last Filed: 04/18/18 18:45> Allergies/Adverse Reactions: Allergies No Known Allergies Allergy (Verified 04/13/18 09:33) Review of Systems - Physician Review All systems were reviewed & negative as marked: Yes - Review of Systems Constitutional: Normal Eyes: Normal ENT: Normal Respiratory: Normal Cardiovascular: Normal Gastrointestinal: Normal Genitourinary Female: Normal Musculoskeletal: Back Pain Skin: Normal Neurological: Normal Endocrine: Normal Hemo/Lymphatic: Normal Psychiatric: Normal <Neeta Wilson A - Last Filed: 04/13/18 19:53> Physical Exam Vital Signs Reviewed: Yes Vital Signs Temp Pulse Resp BP Pulse Ox 04/13/18 09:31 98.4 F 63 17 125/84 100 Temperature: Afebrile Blood Pressure: Normal Pulse: Regular Respiratory Rate: Normal Appearance: Positive for: Well-Appearing, Non-Toxic, Comfortable Pain Distress: None Mental Status: Positive for: Alert and Oriented X 3 - Systems Exam Head: Present: Atraumatic, Normocephalic Pupils: Present: PERRL Extroacular Muscles: Present: EOMI Conjunctiva: Present: Normal Mouth: Present: Moist Mucous Membranes Neck: Present: Normal Range of Motion Respiratory/Chest: Present: Clear to Auscultation, Good Air Exchange. No: Respiratory Distress, Accessory Muscle Use Cardiovascular: Present: Regular Rate and Rhythm, Normal S1, S2. No: Murmurs Abdomen: No: Tenderness, Distention, Peritoneal Signs Back: No: Midline Tenderness, Paraspinal Tenderness, Pain with Leg Raise Upper Extremity: Present: Normal Inspection. No: Cyanosis, Edema Lower Extremity: Present: Normal Inspection. No: Edema Neurological: Present: GCS=15, CN II-XII Intact, Speech Normal Skin: Present: Warm, Dry, Normal Color. No: Rashes Psychiatric: Present: Alert, Oriented x 3, Normal Insight, Normal Concentration <Diru,Happiness [place] - Last Filed: 04/13/18 19:53> Vital Signs Temp Pulse Resp BP Pulse Ox 04/13/18 11:42 98.2 F 04/13/18 10:59 65 18 121/74 100 04/13/18 09:31 98.4 F 63 17 125/84 100 <Mitchel Valdovinos - Last Filed: 04/18/18 18:45> Medical Decision Making ED Course and Treatment: 04/13/18 19:53 PT in ED for stated history. She was ambulatory with normal gait. Neurologically intact. LS/Thoracic spine. Dextroscoliosis. No acute finding UA - UTI Pt treated with keflex and Toradol in ED Her pain was controlled in ED with medication. Result was DW the pt and she DC home with Ibuprofen and keflex. Referred to ortho. - RAD Interpretation Radiology Orders: 04/13/18 09:34 LS SPINE WITH OBL > 18 YRS OLD [RAD] Stat - Medication Orders Current Medication Orders: Discontinued Medications Ketorolac Tromethamine (Toradol) 30 mg IM STAT STA Stop: 04/13/18 09:36 Ketorolac Tromethamine (Toradol) 30 mg IM STAT STA Stop: 04/13/18 09:39 Last Admin: 04/13/18 09:50 Dose: 30 mg MAR Pain Assessment Document 04/13/18 09:50 GMD (Rec: 04/13/18 09:50 GMD [id number]) Pain Reassessment Is this a pain reassessment? No IM Administration Charges Document 04/13/18 09:50 GMD (Rec: 04/13/18 09:50 GMD [id number]) Injection Site MAR Injection Site Left Deltoid Charges for Administration # of IM Administrations 1 <Diru,Happiness A - Last Filed: 04/13/18 19:53> - Lab Interpretations Microbiology Results: Microbiology Results 04/13/18 10:35 Urine,Clean Catch Urine Culture - Final No Growth (<1,000 CFU/ML) Lab Results: Lab Results 04/13/18 09:50: Urine Color Yellow, Urine Appearance Sl cloudy, Urine pH 7.5, Ur Specific [place] 1.015, Urine Protein Trace H, Urine Glucose (UA) Negative, Urine Ketones Negative, Urine Blood Negative, Urine Nitrate Negative, Urine Bilirubin Negative, Urine Urobilinogen 0.2, Ur Leukocyte Esterase Small H, Urine RBC Negative, Urine WBC 2 - 5, Ur Epithelial Cells 6 - 8, Urine Bacteria Small - RAD Interpretation Radiology Orders: 04/13/18 09:34 LS SPINE WITH OBL > 18 YRS OLD [RAD] Stat 04/13/18 10:01 DORSAL (THORACIC) SPINE [RAD] Stat - Medication Orders Current Medication Orders: Discontinued Medications Cephalexin Monohydrate (Keflex) 500 mg PO STAT STA; Protocol Stop: 04/13/18 11:23 Last Admin: 04/13/18 11:41 Dose: 500 mg Ketorolac Tromethamine (Toradol) 30 mg IM STAT STA Stop: 04/13/18 09:36 Ketorolac Tromethamine (Toradol) 30 mg IM STAT STA Stop: 04/13/18 09:39 Last Admin: 04/13/18 09:50 Dose: 30 mg MAR Pain Assessment Document 04/13/18 09:50 GMD (Rec: 04/13/18 09:50 GMD [id number]) Pain Reassessment Is this a pain reassessment? 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 <Mitchel Valdovinos - Last Filed: 04/18/18 18:45> Disposition/Present on Arrival - Present on Arrival Any Indicators Present on Arrival: No History of DVT/PE: No History of Uncontrolled Diabetes: No Urinary Catheter: No History of Decub. Ulcer: No History Surgical Site Infection Following: None - Disposition Have Diagnosis and Disposition been Completed?: Yes Disposition Time: 11:25 Patient Plan: Discharge <Neeta Wilson - Last Filed: 04/13/18 19:53> <Mitchel Valdovinos - Last Filed: 04/18/18 18:45> - Disposition Diagnosis: Back pain, UTI (urinary tract infection) Disposition: HOME/ ROUTINE Condition: STABLE Discharge Instructions (ExitCare): Urinary Tract Infections in Adults Additional Instructions: Follow up with your Doctor Return to ED for any new or worsening symptom Prescriptions: Cephalexin [Keflex] 500 mg PO TID #21 capsule Cyclobenzaprine [Cyclobenzaprine HCl] 10 mg PO DAILY #10 tab RX: Ibuprofen [Motrin Tab] 600 mg PO Q6 #15 tab Referrals: Sivakumar Bates MD [Staff Provider] - Follow up with primary Forms: [employer] (Icelandic)
[2018-04-13 10:04] LABS: PH,URINE 7.5 (4.7-8.0); URINE APPEARANCE SL CLOUDY (CLEAR); URINE BILIRUBIN NEGATIVE (NEGATIVE); URINE BLOOD NEGATIVE (NEGATIVE); URINE COLOR YELLOW (YELLOW); URINE GLUCOSE (UA) NEGATIVE (NEGATIVE); URINE LEUKOCYTE ESTERASE SMALL Leu/uL (NEGATIVE); URINE PROTEIN TRACE mg/dL (<30 mg/dL); URINE UROBILINOGEN 0.2 E.U./dL (<1 E.U./dL)
[2018-04-13 10:09] LABS: URINE BACTERIA SMALL (NEG); URINE RBC NEGATIVE /hpf (0-2)
[2018-04-13 11:00] VITALS: BP 121/74; PULSE 65; RESP 18
--- NOTE | 2018-04-13 11:18 | RAD ---
Date of service: 04/13/2018 PROCEDURE: Radiographs of the Lumbar Spine. HISTORY: Pain. No history of recent/ related trauma provided COMPARISON: No prior. FINDINGS: BONES: Normal alignment. No listhesis. No fracture. DISC SPACES: Unremarkable. OTHER FINDINGS: None. IMPRESSION: Unremarkable radiographs of the lumbar spine.
--- NOTE | 2018-04-13 11:19 | RAD ---
Date of service: 04/13/2018 HISTORY: back pain COMPARISON: No prior. FINDINGS: BONES: Mild dextroscoliosis. DISC SPACES: Normal. SOFT TISSUES: Normal. OTHER FINDINGS: None. IMPRESSION: Mild dextroscoliosis. Otherwise unremarkable study.
[2018-04-13 11:45] VITALS: TEMP 98.2
== END 2018-04-13 11:46 | disposition home or self-care (01) ==
LOC: ED 09:18
DX: N39.0 Urinary tract infection, site not specified (principal); M54.6 Pain in thoracic spine
CPT/HCPCS: 72070; 72110; 81001; 87086; 96372; 99284; J1885

== ENCOUNTER 2018-09-19 19:15 | Emergency (ER) | payer MEDICAID ==
[2018-09-19 19:16] VITALS: BMI 27.1
[2018-09-19 19:46] VITALS: RESP 18; TEMP 98.8
--- NOTE | 2018-09-19 20:51 | ED PDOC ---
Arrival/HPI - General Chief Complaint: Allergic Reaction Time Seen by Provider: 09/19/18 19:18 Historian: Patient - History of Present Illness Narrative History of Present Illness (Text): 09/19/18 21:25 27yr old female presents today with pruritic rash to the abdomen. Patient denies new soaps lotions detergents or perfumes. Patient denies any new medications. Patient denies chest pain or shortness of breath. Patient denies sore throat. Patient denies difficulty breathing or swallowing. Patient denies dizziness or weakness. Patient denies any one else with similar symptoms. No medications have been taken at home. Patient states the pruritus started prior to arrival. Past Medical History - Provider Review Nursing Documentation Reviewed: Yes - Travel History Have you recently traveled outside [place] w/in the past 3 mons?: No - Past History Past History: No Previous - Infectious Disease Hx of Infectious Diseases: None - Tetanus Immunization Tetanus Immunization: Unknown - Cardiac Hx Cardiac Disorders: No Hx Hypertension: No - Renal Hx Kidney Stones: Yes - Psychiatric Hx Depression: No Hx Substance Use: No - Anesthesia Hx Anesthesia: No Family/Social History - Physician Review Nursing Documentation Reviewed: Yes Family/Social History: Unknown Family HX Smoking Status: Never Smoked Hx Alcohol Use: No Hx Substance Use: No Allergies/Home Meds Allergies/Adverse Reactions: Allergies No Known Allergies Allergy (Verified 09/19/18 19:44) Review of Systems - Review of Systems Constitutional: absent: Fatigue, Fevers Respiratory: absent: SOB, Cough Cardiovascular: absent: Chest Pain, Palpitations Gastrointestinal: absent: Abdominal Pain, Nausea, Vomiting Genitourinary Female: absent: Dysuria, Frequency, Hematuria Musculoskeletal: absent: Arthralgias, Back Pain Skin: Rash, Pruritis Neurological: absent: Headache, Dizziness Psychiatric: absent: Anxiety, Depression Physical Exam Vital Signs Reviewed: Yes Vital Signs Temp Pulse Resp BP Pulse Ox 09/19/18 19:45 98.8 F 76 18 127/84 99 Temperature: Afebrile Blood Pressure: Normal Pulse: Regular Respiratory Rate: Normal Appearance: Positive for: Well-Appearing, Non-Toxic, Comfortable Pain Distress: None Mental Status: Positive for: Alert and Oriented X 3 - Systems Exam Head: Present: Atraumatic Mouth: Present: Moist Mucous Membranes Neck: Present: Normal Range of Motion Respiratory/Chest: Present: Clear to Auscultation, Good Air Exchange. No: Respiratory Distress, Accessory Muscle Use Cardiovascular: Present: Regular Rate and Rhythm, Normal S1, S2. No: Murmurs Abdomen: No: Tenderness, Distention, Rebound, Guarding Back: Present: Normal Inspection Upper Extremity: Present: Normal ROM Lower Extremity: Present: Normal ROM Neurological: Present: GCS=15, Speech Normal Skin: Present: Warm, Dry, Rashes (there are few erythematous papules noted to the right side of the abdomen; non tender. ), Normal Color Psychiatric: Present: Alert, Oriented x 3 Medical Decision Making ED Course and Treatment: 09/19/18 21:26 Patient is nontoxic well-appearing in no distress with stable vital signs no angioedema. Lungs are clear to auscultation bilaterally there is no wheezing noted. The airway is patent Benadryl p.o. Pepcid p.o. I advised taking Benadryl every 6 hours as needed for itch as well as Pepcid.. Advised patient to follow up with primary care physician and smoking pipe mounter within the next 2 days and return if symptoms worsen persist or if new symptoms develop Patient verbalizes understanding of discharge instructions and need for immediate followup. All aspects of this case were discussed the attending of record. Impression : Rash Benadryl every 6 hours as needed for itch: May cause drowsiness Pepcid one tablet daily Follow up with the primary care physician within the next 2 days Follow-up with a smoking pipe mounter within the next 2 days Return if symptoms worsen persist or if new symptoms develop: Shortness of breath, feeling of throat closing, difficulty speaking or any other concerning symptoms develop Reassessment Condition: Re-examined, Improved Disposition/Present on Arrival - Present on Arrival Any Indicators Present on Arrival: No History of DVT/PE: No History of Uncontrolled Diabetes: No Urinary Catheter: No History of Decub. Ulcer: No History Surgical Site Infection Following: None - Disposition Have Diagnosis and Disposition been Completed?: Yes Diagnosis: Rash Disposition: HOME/ ROUTINE Disposition Time: 20:51 Patient Plan: Discharge Patient Problems: Current Active Problems Problem Status Onset Rash Acute Condition: GOOD Discharge Instructions (ExitCare): Skin Rash (DC) Additional Instructions: Benadryl every 6 hours as needed for itch: May cause drowsiness Pepcid one tablet daily Follow up with the primary care physician within the next 2 days Follow-up with a smoking pipe mounter within the next 2 days Return if symptoms worsen persist or if new symptoms develop: Shortness of breath, feeling of throat closing, difficulty speaking or any other concerning symptoms develop Prescriptions: DiphenhydrAMINE [Benadryl] 25 mg PO Q6H #20 cap Famotidine [Pepcid] 20 mg PO DAILY #30 tab Referrals: Lisa Wisdom MD [Medical Doctor] - Follow up with primary Kristin Vasquez MD [Staff Provider] - Follow up with primary [facility] [Outside] - Follow up with primary Forms: [employer] (Swiss), WORK NOTE
[2018-09-19 22:32] VITALS: BP 120/63; PULSE 74; O2SAT 100
== END 2018-09-19 22:32 | disposition home or self-care (01) ==
LOC: ED 19:15
DX: R21 Rash and other nonspecific skin eruption (principal)

== ENCOUNTER 2018-10-28 16:46 | Inpatient (IN) | payer MEDICAID ==
[2018-10-28 16:46] VITALS: BMI 27.1
[2018-10-28] MEDS ORDERED: Sodium Chloride 0.9% 1,000 ML IV STA (17:35)
[2018-10-28 18:09] LABS: BASO # 0.01 K/mm3 (0.0-2.0); BASO % 0.1 % (0.0-3.0); HEMOGLOBIN 14.2 g/dL (12.0-16.0); LYMPH # 1.1 (1.2-3.4); LYMPH % 5.7 % (22.0-35.0); MEAN CELL VOLUME 86.9 fl (80.0-105.0); MEAN CORPUSCULAR HGB CONC 33.4 g/dl (31.0-37.0); MEAN PLATELET VOLUME 10.2 fl (7.0-11.0); MONO % 5.1 % (1.0-6.0); RBC 4.89 10^6/uL (3.5-6.1); RED CELL DISTRIBUTION WIDTH 12.9 % (11.5-14.5); WHITE BLOOD COUNT 18.5 10^3/uL (4.5-11.0)
[2018-10-28 18:10] LABS: URINE BILIRUBIN NEGATIVE (NEGATIVE); URINE BLOOD TRACE-INTACT (NEGATIVE); URINE GLUCOSE (UA) NEGATIVE (NEGATIVE); URINE LEUKOCYTE ESTERASE TRACE Leu/uL (NEGATIVE); URINE PROTEIN TRACE mg/dL (<30 mg/dL); URINE UROBILINOGEN 0.2 E.U./dL (<1 E.U./dL)
[2018-10-28 18:11] LABS: URINE APPEARANCE SLIGHT-CLOUDY (CLEAR); URINE COLOR YELLOW (YELLOW)
--- NOTE | 2018-10-28 18:12 | ED PDOC ---
Arrival/HPI - General Chief Complaint: Female Genitourinary Time Seen by Provider: 10/28/18 17:25 Historian: Patient - History of Present Illness Narrative History of Present Illness (Text): 10/28/18 18:16 28-year-old female presents today with low back pain and fever. Patient states back pain started yesterday. She denies any trauma or injury. Patient states the pain is across the lower back. Patient complaining of urinary frequency. Denies dysuria. Denies vaginal bleeding or vaginal discharge. Patient denies abdominal pain. No nausea vomiting diarrhea or constipation. Patient denies . Patient denies headache dizziness or weakness. No chest pain or shortness of breath. Patient denies IV drug use. Patient denies bladder or bowel incontinence. Patient denies saddle paresthesias. Patient denies nu mbness weakness or tingling in the lower extremities. Patient states she took Tylenol at noon for pain. No other complaints Past Medical History - Provider Review Nursing Documentation Reviewed: Yes - Travel History Have you recently traveled outside [place] w/in the past 3 mons?: No - Past History Past History: No Previous - Infectious Disease Hx of Infectious Diseases: None - Tetanus Immunization Tetanus Immunization: Unknown - Cardiac Hx Cardiac Disorders: No Hx Hypertension: No - Renal Hx Kidney Stones: Yes - Genitourinary/Gynecological Hx Urinary Tract Infection: Yes Other/Comment: UTI - Psychiatric Hx Depression: No Hx Substance Use: No - Anesthesia Hx Anesthesia: No Family/Social History - Physician Review Nursing Documentation Reviewed: Yes Family/Social History: Unknown Family HX Smoking Status: Never Smoked Hx Alcohol Use: No Hx Substance Use: No Allergies/Home Meds Allergies/Adverse Reactions: Allergies No Known Allergies Allergy (Verified 10/28/18 17:19) Home Medications: Home Meds Medication Instructions Recorded Confirmed No Known Home Med 10/28/18 10/28/18 Review of Systems - Review of Systems Constitutional: Fatigue, Fevers Respiratory: absent: SOB, Cough Cardiovascular: absent: Chest Pain, Palpitations Gastrointestinal: absent: Abdominal Pain, Constipation, Diarrhea, Nausea, Vomit ing Genitourinary Female: Frequency. absent: Dysuria, Hematuria, Vaginal Bleeding, Vaginal Discharge Musculoskeletal: Back Pain. absent: Arthralgias, Neck Pain Skin: absent: Rash, Pruritis Neurological: absent: Headache, Dizziness Psychiatric: absent: Anxiety, Depression, Suicidal Ideation Physical Exam Vital Signs Reviewed: Yes Vital Signs Temp Pulse Resp BP Pulse Ox 10/28/18 16:46 104.4 F H 132 H 20 122/59 L 99 Temperature: Febrile Blood Pressure: Normal Pulse: Tachycardic Respiratory Rate: Normal Appearance: Positive for: Well-Appearing, Non-Toxic, Uncomfortable Pain Distress: Moderate Mental Status: Positive for: Alert and Oriented X 3 - Systems Exam Head: Present: Atraumatic Ears: Present: Normal, NORMAL TM Mouth: Present: Moist Mucous Membranes, Normal Lips, Normal Tounge. No: Drooling, Trismus Pharnyx: Present: ERYTHEMA, TONSILS ENLARGED. No: Peritonsilar Swelling, Uvular Deviation, Muffled/Hoarse Voice, Strider Nose (Internal): Present: Normal Inspection Neck: Present: Normal Range of Motion Respiratory/Chest: Present: Clear to Auscultation, Good Air Exchange. No: Respiratory Distress, Accessory Muscle Use Cardiovascular: Present: Regular Rate and Rhythm, Normal S1, S2. No: Murmurs Abdomen: No: Tenderness, Distention, Rebound, Guarding Back: Present: Normal Inspection, Midline Tenderness (Lumbar), Paraspinal Tenderness (Lumbar), Other (No erythema no edema no ecchymosis). No: CVA Tenderness, Pain with Leg Raise Upper Extremity: Present: Normal ROM Lower Extremity: Present: Normal ROM Neurological: Present: GCS=15, Speech Normal, Motor Func Grossly Intact, Normal Sensory Function Skin: Present: Warm, Dry, Normal Color. No: Rashes Psychiatric: Present: Alert, Oriented x 3 Medical Decision Making ED Course and Treatment: 10/28/18 18:18 28-year-old female with back pain and fever since yesterday. crying in severe pain. fever 104.4. tenderness across low back. EKG: sinus tachycardia [id number]. no st elevations CBC: WBC: 18.5 CMP within normal limits Urinalysis: trace leukocytes Lactic acid: 1.6 CAT scan of the abdomen and pelvis with IV contrast: FINDINGS: LOWER THORAX: The visualized lungs are clear. LIVER: Mild hepatomegaly and fatty liver. Normal homogeneous enhancement. No gross lesion or ductal dilatation. GALLBLADDER AND BILE DUCTS: Well distended. No calcified gallstones, wall thickening or pericholecystic fluid. PANCREAS: Normal in size with homogeneous enhancement. No gross lesion or ductal dilatation. SPLEEN: There is mild splenomegaly. Normal homogeneous enhancement. ADRENALS: No discrete nodule. KIDNEYS AND URETERS: Normal in size with homogeneous enhancement. No hydronephrosis. There are 2 small nonobstructing stones in the upper pole of the left kidney.. VASCULATURE: No aortic aneurysm. There are no aortic atherosclerotic calcifications or mural plaque present. BOWEL: Evaluation of the bowel is limited in the absence of oral contrast. The small bowel loops are normal in caliber. The colon is grossly normal in appearance. No bowel wall thickening or obstruction. APPENDIX: Normal appendix. PERITONEUM: No free fluid. No free air. LYMPH NODES: No enlarged lymph nodes. BLADDER: Decompressed. REPRODUCTIVE: The uterus is normal in size. BONES: No acute fracture. Within normal limits for the patient's age. OTHER FINDINGS: None. IMPRESSION: 1. No acute abdominal or pelvic abnormality. 2. Two small nonobstructing stones in the upper pole of the left kidney. 3. Mild hepatosplenomegaly and fatty liver. Blood and urine cultures pending Patient given a liter of normal saline, Toradol, Tylenol, morphine for pain 10/28/18 19:19 Patient reassessment: Patient feeling slightly better still remains slightly tachycardic. Patient now states that she does have some throat pain. She was found to have pharyngeal erythema. Rapid strep added. all results discussed with patient We will treat the patient with Rocephin IV consider fever caused by strep throat causing back pain although pt presented with high fevers and back pain, must consider Urine as source. Case discussed with Dr. Reyes accepts observational status admission for leukocytosis, fever, back pain, throat pain, UTI case discussed with resident . All aspects of this case were discussed the attending of record. Impression: Fever, back pain, throat pain, UTI, leukocytosis Admit obs MedSurg Reassessment Condition: Re-examined, Improved - RAD Interpretation Radiology Orders: 10/28/18 17:32 CHEST PORTABLE [RAD] Stat - Medication Orders Current Medication Orders: Sodium Chloride (Sodium Chloride 0.9%) 1,000 mls @ 999 mls/hr IV .Q1H1M STA Stop: 10/28/18 18:35 Last Admin: 10/28/18 17:44 Dose: 999 mls/hr eMAR Start Stop Document 10/28/18 17:44 EQ (Rec: 10/28/18 17:44 [facility] Intravenous Solution Start Date 10/28/18 Start Time 17:44 Discontinued Medications Acetaminophen (Tylenol 325mg Tab) 975 mg PO STAT STA Stop: 10/28/18 17:36 Last Admin: 10/28/18 17:44 Dose: 975 mg Ketorolac Tromethamine (Toradol) 30 mg IVP STAT STA Stop: 10/28/18 17:36 Last Admin: 10/28/18 17:44 Dose: 30 mg MAR Pain Assessment Document 10/28/18 17:44 EQ (Rec: 10/28/18 17:44 EQ [facility] Pain Reassessment Is this a pain reassessment? No Sleep Is patient sleeping during reassessment? No Presence of Pain Presence of Pain Yes IVP Administration Document 10/28/18 17:44 EQ (Rec: 10/28/18 17:44 EQ [facility] Charges for Administration # of IVP Administrations 1 Disposition/Present on Arrival - Present on Arrival Any Indicators Present on Arrival: No History of DVT/PE: No History of Uncontrolled Diabetes: No Urinary Catheter: No History of Decub. Ulcer: No History Surgical Site Infection Following: None - Disposition Have Diagnosis and Disposition been Completed?: Yes Diagnosis: Fever, Back pain, Leukocytosis, UTI (urinary tract infection), Throat pain Disposition: HOSPITALIZED Disposition Time: 18:19 Patient Plan: Observation Patient Problems: Current Active Problems Problem Status Onset Back pain Acute Fever Acute Leukocytosis Acute Throat pain Acute UTI (urinary tract infection) Acute Condition: FAIR
[2018-10-28 18:16] LABS: VENOUS BLOOD GAS BASE EXCESS -1.8 mmol/L (0.0-2.0); VENOUS BLOOD GAS PO2 25 mm/Hg (30-55); VENOUS BLOOD PH 7.38 (7.32-7.43)
[2018-10-28 18:17] LABS: ALBUMIN 4.7 g/dL (3.0-4.8); ALT/SGPT 8 U/L (7-56); AST/SGOT 23 U/L (14-36); BLOOD UREA NITROGEN 13 mg/dL (7-21); CALCIUM 9.4 mg/dL (8.4-10.5); GFR NON-AFRICAN AMERICAN > 60; LIPASE 94 U/L (23-300)
[2018-10-28] MEDS ORDERED: Iohexol 350 MG/100 ML VIAL ONE (18:20)
[2018-10-28] MEDS ORDERED: Morphine 2 mg/ml ISec IVP STA (18:20)
[2018-10-28 18:26] LABS: URINE RBC 0 - 2 /hpf (0-2)
--- NOTE | 2018-10-28 18:53 | RAD ---
Date of service: 10/28/2018 HISTORY: right flank pain COMPARISON: No prior. FINDINGS: LUNGS: The lungs are well inflated and clear. PLEURA: No pleural effusions or pneumothorax. CARDIOVASCULAR: The heart is normal in size. No aortic atherosclerotic calcifications present. OSSEOUS STRUCTURES: Within normal limits for the patient's age. VISUALIZED UPPER ABDOMEN: Normal. OTHER FINDINGS: None. IMPRESSION: No active pulmonary disease.
--- NOTE | 2018-10-28 18:53 | CT ---
Date of service: 10/28/2018 PROCEDURE: CT Abdomen and Pelvis with contrast HISTORY: Back pain, fever COMPARISON: 03/27/2016. TECHNIQUE: CT scan of the abdomen and pelvis was performed after administration of intravenous contrast. Oral contrast was not administered. Coronal and sagittal reformatted images were obtained. Contrast dose: 100 mL Omnipaque 350 Radiation dose: Total exam DLP = 558.6 mGy-cm. This CT exam was performed using one or more of the following dose reduction techniques: Automated exposure control, adjustment of the mA and/or kV according to patient size, and/or use of iterative reconstruction technique. FINDINGS: LOWER THORAX: The visualized lungs are clear. LIVER: Mild hepatomegaly and fatty liver. Normal homogeneous enhancement. No gross lesion or ductal dilatation. GALLBLADDER AND BILE DUCTS: Well distended. No calcified gallstones, wall thickening or pericholecystic fluid. PANCREAS: Normal in size with homogeneous enhancement. No gross lesion or ductal dilatation. SPLEEN: There is mild splenomegaly. Normal homogeneous enhancement. ADRENALS: No discrete nodule. KIDNEYS AND URETERS: Normal in size with homogeneous enhancement. No hydronephrosis. There are 2 small nonobstructing stones in the upper pole of the left kidney.. VASCULATURE: No aortic aneurysm. There are no aortic atherosclerotic calcifications or mural plaque present. BOWEL: Evaluation of the bowel is limited in the absence of oral contrast. The small bowel loops are normal in caliber. The colon is grossly normal in appearance. No bowel wall thickening or obstruction. APPENDIX: Normal appendix. PERITONEUM: No free fluid. No free air. LYMPH NODES: No enlarged lymph nodes. BLADDER: Decompressed. REPRODUCTIVE: The uterus is normal in size. BONES: No acute fracture. Within normal limits for the patient's age. OTHER FINDINGS: None. IMPRESSION: 1. No acute abdominal or pelvic abnormality. 2. Two small nonobstructing stones in the upper pole of the left kidney. 3. Mild hepatosplenomegaly and fatty liver.
[2018-10-28] MEDS ORDERED: cefTRIAXone 1 gm 1 GM/100 ML BAG IVPB STA (19:17)
[2018-10-28] MEDS: Sodium Chloride 0.9% 1,000 ML IV SCH (23:00)
[2018-10-28] MEDS: Oxycodone/Acetaminophen 5/325 mg Tab PO PRN (23:47)
--- NOTE | 2018-10-29 00:03 | CP.PCM.HP ---
<Tim Singer - Last Filed: 10/29/18 00:03> History of Present Illness - History of Present Illness History of Present Illness: PGY-1 Medicine H&P for Dr. Reyes CC: Lower back pain HPI: Patient is a 28 year old female with a past medical history of nephrolithiasis and UTI, presenting with lower back pain that started earlier today. She describe the back pain to be stabbing, 10/10 at its worst, and located on both sides of her lower back. She states that she had right kidney stones before in the past but the pain feels different this time. She took Tylenol at home without relief. She also admits to having fevers that started last night. 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 She denies sick contacts at home or recent travels. She denies cough, nasal congestion, or sore throat. She is currently sexually active with only. Denies using protection and takes control pills. She denies urinary frequency, dysuria, hematuria, dyspareunia, malodorous urine, history of STI's, vaginal bleeding or discharge. She further denies headaches, shortness of breath, chest pain, abdominal pain, nausea, vomiting, or diarrhea. 12-point ROS reviewed and negative, except mentioned in HPI. PMHx: Nephrolithiasis (right kidney), UTI (6 months ago) PSHx: denies Allergies: NKDA OBGYN Hx: . LMP was 10/16/2018. Patient is sexually active with only. Does not use protection and takes control pills. She denies history of any STI's. Social Hx: denies tobacco alcohol, or drug use. 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 Family Hx: denies. Medications: none PMD: [facility] [employer] Present on Admission - Present on Admission Any Indicators Present on Admission: No History of DVT/PE: No History of Uncontrolled Diabetes: No Urinary Catheter: No Decubitus Ulcer Present: No Past Patient History - Infectious Disease Hx of Infectious Diseases: None - Tetanus Immunizations Tetanus Immunization: Unknown - Past Social History Smoking Status: Never Smoked - CARDIAC Hx Cardiac Disorders: No Hx Hypertension: No - RENAL Hx Kidney Stones: Yes - GENITOURINARY/GYNECOLOGICAL Hx Urinary Tract Infection: Yes Other/Comment: UTI - PSYCHIATRIC Hx Depression: No Hx Substance Use: No - SURGICAL HISTORY Hx Surgeries: No - ANESTHESIA Hx Anesthesia: No Meds Allergies/Adverse Reactions: Allergies Allergy/AdvReac Type Severity Reaction Status Date / Time No Known Allergies Allergy Verified 10/28/18 17:19 Physical Exam - Constitutional Appears: Non-toxic, No Acute Distress Additional comments: Appears uncomfortable - Head Exam Head Exam: ATRAUMATIC, NORMAL INSPECTION - Eye Exam Eye Exam: EOMI, Normal appearance Pupil Exam: NORMAL ACCOMODATION - ENT Exam ENT Exam: Mucous Membranes Moist - Neck Exam Neck exam: Positive for: Normal Inspection - Respiratory Exam Respiratory Exam: Clear to Auscultation Bilateral, NORMAL BREATHING PATTERN. absent: Rales, Rhonchi, Wheezes - Cardiovascular Exam Cardiovascular Exam: REGULAR RHYTHM, +S1, +S2. absent: Bradycardia, Tachycardia, Gallop, Rubs, Systolic Murmur - GI/Abdominal Exam GI & Abdominal Exam: Normal Bowel Sounds, Soft, Tenderness (Suprapubic tenderness). absent: Distended, Firm, Guarding - Extremities Exam Extremities exam: Positive for: normal inspection. Negative for: calf tendernes s, pedal edema - Back Exam Back exam: CVA tenderness (L), CVA tenderness (R), tenderness (Lower backend developer to palpation ). absent: paraspinal tenderness, vertebral tenderness - Neurological Exam Neurological exam: Alert, CN II-XII Intact, Oriented x3 - Psychiatric Exam Psychiatric exam: Normal Affect, Normal Mood - Skin Skin Exam: Dry, Intact, Normal Color, Warm Results - Vital Signs Recent Vital Signs: Last Vital Signs Temp 99.5 F 10/28/18 20:14 Pulse 97 H 10/28/18 20:25 Resp 18 10/28/18 20:25 BP 104/69 10/28/18 20:25 Pulse Ox 100 10/28/18 20:25 - Labs Result Diagrams: 10/28/18 18:02 10/28/18 18:02 Labs: Laboratory Results - last 24 hr 10/28/18 10/28/18 10/28/18 18:00 18:02 18:02 WBC RBC Hgb Hct MCV MCH MCHC RDW Plt Count MPV Neut % (Auto) Lymph % (Auto) Posey % (Auto) Eos % (Auto) Baso % (Auto) Lymph # (Auto) Posey # (Auto) Eos # (Auto) Baso # (Auto) Absolute Neuts (auto) pO2 25 L VBG pH 7.38 VBG pCO2 39.0 L VBG HCO3 23.1 VBG Total CO2 24.3 VBG O2 Sat (Calc) 50.6 VBG Base Excess -1.8 L VBG Potassium 4.0 Sodium 135.0 138 Chloride 100.0 100 Glucose 101 Lactate 1.6 FiO2 21.0 Potassium 3.8 Carbon Dioxide 22 Anion Gap 19 BUN 13 Creatinine 0.8 Est GFR ( Amer) > 60 Est GFR (Non-Af Amer) > 60 Random Glucose 100 Calcium 9.4 Total Bilirubin 0.6 AST 23 ALT 8 Alkaline Phosphatase 70 Total Protein 9.2 H Albumin 4.7 Globulin 4.5 Albumin/Globulin Ratio 1.0 L Lipase 94 Venous Blood Potassium 4.0 Urine Color Yellow Urine Appearance Slight-cloudy Urine pH 6.0 Ur Specific [place] 1.025 Urine Protein Trace H Urine Glucose (UA) Negative Urine Ketones 40 H Urine Blood Trace-intact H Urine Nitrate Negative Urine Bilirubin Negative Urine Urobilinogen 0.2 Ur Leukocyte Esterase Trace H Urine RBC 0 - 2 Urine WBC 1 - 3 Ur Epithelial Cells 4 - 5 Grp A Beta Strep Ag 10/28/18 10/28/18 18:02 20:20 WBC 18.5 H RBC 4.89 Hgb 14.2 D Hct 42.5 MCV 86.9 MCH 29.0 MCHC 33.4 RDW 12.9 Plt Count 266 MPV 10.2 Neut % (Auto) 89.1 H Lymph % (Auto) 5.7 L Posey % (Auto) 5.1 Eos % (Auto) 0.0 L Baso % (Auto) 0.1 Lymph # (Auto) 1.1 L [place]y # (Auto) 1.0 H Eos # (Auto) 0.0 Baso # (Auto) 0.01 Absolute Neuts (auto) 16.52 H pO2 VBG pH VBG pCO2 VBG HCO3 VBG Total CO2 VBG O2 Sat (Calc) VBG Base Excess VBG Potassium Sodium Chloride Glucose Lactate FiO2 Potassium Carbon Dioxide Anion Gap BUN Creatinine Est GFR ( Amer) Est GFR (Non-Af Amer) Random Glucose Calcium Total Bilirubin AST ALT Alkaline Phosphatase Total Protein Albumin Globulin Albumin/Globulin Ratio Lipase Venous Blood Potassium Urine Color Urine Appearance Urine pH Ur Specific [place] Urine Protein Urine Glucose (UA) Urine Ketones Urine Blood Urine Nitrate Urine Bilirubin Urine Urobilinogen Ur Leukocyte Esterase Urine RBC Urine WBC Ur Epithelial Cells Grp A Beta Strep Ag Negative Assessment & Plan - Assessment and Plan (Free Text) Assessment: Patient is a 28 year old female with a past medical history of nephrolithiasis and UTI, presenting with lower back pain. Plan: SIRS - Rule out pyelonephritis vs nephrolithiasis vs intraabdominal infections - On admission, Rectal Temp: 104.4, HR: 132, WBC: 18.5 - Lactate: WNL - CT abd/pelvis: No acute abdominal or pelvic abnormality. Two small nonobstructing stones in the upper pole of the left kidney. Mild hepatosplenomegaly and fatty liver. - CXR: no acute findings - Renal ultrasound: pending - Start Doxycycline 100mg PO Q12 (Started on 10/28) - 1 dose of Rocephin given in ED - ID consulted, Dr. Wilson/Bernice - Group A Strep: negative - UA: positive for trace LE and few WBC - Follow up CRP, ESR - Follow up blood, throat, and urine culture - FOllow up RPR, HIV, Chlamydia, Gonorrhea - NS @ 100 mL/hr - 1L bolus of NS given in ED Lower back pain - Rule out pyelonephritis vs nephrolithiasis - Renal ultrasound: pending - Tylenol PRN - Toradol PRN - Percocet PRN - UA: positive for trace LE and few WBC - Follow up urine culture Prophylaxis: - DVT: Lovenox 40mg SC QD - GI: Protonix 40mg PO QD Patient seen and case discussed with attending, Dr. Reyes. Tim Singer, PGY-1 <Jan Reyes - Last Filed: 10/29/18 01:34> Results - Vital Signs Recent Vital Signs: Last Vital Signs Temp 99.5 F 10/28/18 20:14 Pulse 97 H 10/28/18 20:25 Resp 18 10/29/18 00:13 BP 104/69 10/28/18 20:25 Pulse Ox 100 10/28/18 20:25 - Labs Result Diagrams: 10/28/18 18:02 10/28/18 18:02 Labs: Laboratory Results - last 24 hr 10/28/18 10/28/18 10/28/18 18:00 18:02 18:02 WBC RBC Hgb Hct MCV MCH MCHC RDW Plt Count MPV Neut % (Auto) Lymph % (Auto) Posey % (Auto) Eos % (Auto) Baso % (Auto) Lymph # (Auto) [place] # (Auto) Eos # (Auto) Baso # (Auto) Absolute Neuts (auto) ESR pO2 25 L VBG pH 7.38 VBG pCO2 39.0 L VBG HCO3 23.1 VBG Total CO2 24.3 VBG O2 Sat (Calc) 50.6 VBG Base Excess -1.8 L VBG Potassium 4.0 Sodium 135.0 138 Chloride 100.0 100 Glucose 101 Lactate 1.6 FiO2 21.0 Potassium 3.8 Carbon Dioxide 22 Anion Gap 19 BUN 13 Creatinine 0.8 Est GFR ( Amer) > 60 Est GFR (Non-Af Amer) > 60 Random Glucose 100 Calcium 9.4 Total Bilirubin 0.6 AST 23 ALT 8 Alkaline Phosphatase 70 Total Protein 9.2 H Albumin 4.7 Globulin 4.5 Albumin/Globulin Ratio 1.0 L Lipase 94 Venous Blood Potassium 4.0 Urine Color Yellow Urine Appearance Slight-cloudy Urine pH 6.0 Ur Specific [place] 1.025 Urine Protein Trace H Urine Glucose (UA) Negative Urine Ketones 40 H Urine Blood Trace-intact H Urine Nitrate Negative Urine Bilirubin Negative Urine Urobilinogen 0.2 Ur Leukocyte Esterase Trace H Urine RBC 0 - 2 Urine WBC 1 - 3 Ur Epithelial Cells 4 - 5 Grp A Beta Strep Ag 10/28/18 10/28/18 10/28/18 18:02 18:02 20:20 WBC 18.5 H RBC 4.89 Hgb 14.2 D Hct 42.5 MCV 86.9 MCH 29.0 MCHC 33.4 RDW 12.9 Plt Count 266 MPV 10.2 Neut % (Auto) 89.1 H Lymph % (Auto) 5.7 L Posey % (Auto) 5.1 Eos % (Auto) 0.0 L Baso % (Auto) 0.1 Lymph # (Auto) 1.1 L [place]y # (Auto) 1.0 H Eos # (Auto) 0.0 Baso # (Auto) 0.01 Absolute Neuts (auto) 16.52 H ESR 30 H pO2 VBG pH VBG pCO2 VBG HCO3 VBG Total CO2 VBG O2 Sat (Calc) VBG Base Excess VBG Potassium Sodium Chloride Glucose Lactate FiO2 Potassium Carbon Dioxide Anion Gap BUN Creatinine Est GFR ( Amer) Est GFR (Non-Af Amer) Random Glucose Calcium Total Bilirubin AST ALT Alkaline Phosphatase Total Protein Albumin Globulin Albumin/Globulin Ratio Lipase Venous Blood Potassium Urine Color Urine Appearance Urine pH Ur Specific [place] Urine Protein Urine Glucose (UA) Urine Ketones Urine Blood Urine Nitrate Urine Bilirubin Urine Urobilinogen Ur Leukocyte Esterase Urine RBC Urine WBC Ur Epithelial Cells Grp A Beta Strep Ag Negative Attending/Attestation - Attestation I have personally seen and examined this patient.: Yes I have fully participated in the care of the patient.: Yes I have reviewed all pertinent clinical information: Yes Notes (Text): 10/29/18 01:33 Patient was seen when she was in the ER. Medical record was reviewed. Agree with history, physical examination, assessment and plan.
[2018-10-29 07:32] LABS: BASO # 0.01 K/mm3 (0.0-2.0); BASO % 0.1 % (0.0-3.0); HEMOGLOBIN 11.4 g/dL (12.0-16.0); LYMPH # 1.4 (1.2-3.4); MEAN CELL VOLUME 87.3 fl (80.0-105.0); MEAN CORPUSCULAR HEMOGLOBIN 27.8 pg (25.0-35.0); MEAN CORPUSCULAR HGB CONC 31.8 g/dl (31.0-37.0); MONO # 1.3 (0.1-0.6); RBC 4.1 10^6/uL (3.5-6.1); RED CELL DISTRIBUTION WIDTH 13.1 % (11.5-14.5); WHITE BLOOD COUNT 15.6 10^3/uL (4.5-11.0)
[2018-10-29 07:52] LABS: ALBUMIN 3.4 g/dL (3.0-4.8); ALT/SGPT 22 U/L (7-56); AST/SGOT 18 U/L (14-36); BLOOD UREA NITROGEN 13 mg/dL (7-21); CALCIUM 8.1 mg/dL (8.4-10.5); GFR NON-AFRICAN AMERICAN > 60
[2018-10-29] MEDS: Sodium Chloride 0.9% 1,000 ML IV SCH (09:42)
[2018-10-29] MEDS: cefTRIAXone 1 gm 1 GM/100 ML BAG IVPB SCH (09:43)
[2018-10-29] MEDS: Enoxaparin 40 mg Syringe SC SCH (09:43)
[2018-10-29] MEDS: Pantoprazole 40 mg EC Tab PO SCH (09:44)
[2018-10-29] MEDS ORDERED: Magnesium Sulfate 2 gm/50 ml 2 GM/50 ML BAG IVPB ONE (09:45)
[2018-10-29] MEDS ORDERED: Potassium Chloride 40 mEq/30 ml LIQ UD PO ONE (09:45)
[2018-10-29] MEDS: Benzocaine/Menthol (Cepacol) Lozenge MT PRN ×2 (11:49→16:52)
--- NOTE | 2018-10-29 12:07 | US ---
Date of service: 10/29/2018 PROCEDURE: Ultrasound of the Kidneys HISTORY: r/o pyelo vs stones COMPARISON: Correlations made CT scan of the abdomen pelvis dated 10/28/2018. TECHNIQUE: Sonogram of the kidneys. FINDINGS: RIGHT KIDNEY: Measures: 10.5 x 4.5 x 5.6 cm. Normal in size, contour and echogenicity. No stone, solid mass lesion or hydronephrosis visualized. LEFT KIDNEY: Measures: 10.6 x 6.6 x 5.6 cm. Nonobstructive upper pole 6 x 5 x 6 mm calculus. Normal in size, contour and echogenicity. No solid mass lesion or hydronephrosis visualized. OTHER FINDINGS: None. IMPRESSION: Nonobstructive subcentimeter left nephrolithiasis. No hydronephrosis.
--- NOTE | 2018-10-29 15:05 | CARD ---
APPROVED REPORT Date of service: 10/28/2018 EKG Measurement Heart [id number] ID [id number] <Conclusion> Sinus tachycardia Nonspecific T wave abnormality Abnormal ECG
--- NOTE | 2018-10-30 02:48 | CON ---
DATE: 10/29/2018 LOCATION: The patient is in bed, was seen earlier today. CHIEF COMPLAINT: Fever, frequency and urinary symptoms. HISTORY OF PRESENT ILLNESS: This is a 28-year-old female with history of urinary tract infection and history of kidney stone, who was admitted with frequency, fever, tachycardia, and weakness. Infectious disease consultation requested. REVIEW OF SYSTEMS: A 12-point review of systems was performed. PAST MEDICAL HISTORY: Significant for kidney stones and urinary tract infection. PAST SURGICAL HISTORY: Noncontributory. ALLERGIES: SHE HAS NO KNOWN ALLERGIES. SOCIAL HISTORY: She has no travel history. She has no pets. She lives with her boyfriend and child, and her boyfriend is a owner operator tanker truck driver. She has had not exposure to tuberculosis. No travel outside the country. PHYSICAL EXAMINATION: GENERAL: She is in bed, answering questions appropriately. VITAL SIGNS: Temperature of 104.4, respiratory rate of 20, heart rate of 109, blood pressure is 106/62. HEENT: Unremarkable. NECK: Supple. LUNGS: Have decreased breath sounds. HEART: Normal S1 and S2. ABDOMEN: Soft and nontender. No organomegaly, no rebound, no guarding. There is CVA tenderness. LABORATORY DATA: Reveals the patient to have a white count of 18,500 and hemoglobin of 14. Chemistries reveal a BUN of 13 and creatinine of 0.8. Urinalysis; 1 to 3 wbc's with trace leukocyte esterase and trace blood, negative nitrites, slightly cloudy urine. Serology and group B strep is negative. Urine cultures negative. The patient had a CAT scan of the abdomen and pelvis, no acute pathology on CT of the abdomen, there is mild hepatosplenomegaly with fatty liver. The patient also had a renal ultrasound which revealed no hydronephrosis and chest x-ray which is negative. The patient states that she has a monogamous relationship with her boyfriend. ASSESSMENT AND PLAN: This is a 28-year-old male with kidney stones and presenting with a temperature of 104.4, heart rate of 132, leukocytosis with white count of 18,000 with urinary symptoms. Systemic inflammatory response syndrome, must rule out pyelonephritis, although the urine culture is negative and urinalysis is not consistent with this diagnosis, must also consider sexually transmitted diseases and pelvic inflammatory disease. We will treat the patient with ceftriaxone and doxycycline, and pending blood cultures, we will also order an HIV test and syphilis and RPR, Chlamydia and GC NAAT study. We will make further recommendations upon availability of initial results, initial workup and also clinical response. Sony Queen MD
[2018-10-30 08:08] LABS: BASO # 0.01 K/mm3 (0.0-2.0); BASO % 0.1 % (0.0-3.0); EOS # 0.1 (0.0-0.7); EOS % 0.4 % (1.5-5.0); HEMOGLOBIN 10.7 g/dL (12.0-16.0); LYMPH # 2.2 (1.2-3.4); MEAN CELL VOLUME 88.7 fl (80.0-105.0); MEAN CORPUSCULAR HEMOGLOBIN 28.2 pg (25.0-35.0); MEAN CORPUSCULAR HGB CONC 31.8 g/dl (31.0-37.0); MEAN PLATELET VOLUME 10.2 fl (7.0-11.0); MONO # 1.4 (0.1-0.6); MONO % 12.3 % (1.0-6.0); RBC 3.8 10^6/uL (3.5-6.1); RED CELL DISTRIBUTION WIDTH 13.6 % (11.5-14.5); WHITE BLOOD COUNT 11.7 10^3/uL (4.5-11.0)
[2018-10-30 08:22] LABS: ALBUMIN 3.1 g/dL (3.0-4.8); ALT/SGPT 21 U/L (7-56); AST/SGOT 21 U/L (14-36); BLOOD UREA NITROGEN 6 mg/dL (7-21); GFR NON-AFRICAN AMERICAN > 60
[2018-10-30] MEDS: cefTRIAXone 1 gm 1 GM/100 ML BAG IVPB SCH (09:47)
[2018-10-30] MEDS: Enoxaparin 40 mg Syringe SC SCH (09:47)
[2018-10-30] MEDS: Pantoprazole 40 mg EC Tab PO SCH (09:48)
--- NOTE | 2018-10-30 10:27 | CP.PCM.PN ---
<Valentin Rocha - Last Filed: 10/30/18 10:24> Subjective - Date & Time of Evaluation Date of Evaluation: 10/30/18 Time of Evaluation: 10:24 - Subjective Subjective: Valentin Rocha, PGY-1, Internal Medicine Progress Note for Dr. Scales Patient seen and evaluated at bedside. Patient was febrile at 101.1 overnight. This morning patient reports no back or abdominal pain. She denies any other complaints at this time. 12-point ROS was unremarkable except for what was mentioned above. Objective - Vital Signs/Intake and Output Vital Signs (last 24 hours): Temp Pulse Resp BP Pulse Ox 97.6 F 91 H 20 135/82 100 10/30/18 06:00 10/30/18 06:00 10/30/18 06:00 10/30/18 06:00 10/30/18 06:00 Intake and Output: 10/30/18 10/30/18 06:59 18:59 Intake Total 1540 Balance 1540 - Medications Medications: Current Medications Acetaminophen (Tylenol 325mg Tab) 650 mg PO Q6H PRN PRN Reason: Pain, Mild (1-3) Last Admin: 10/29/18 21:46 Dose: 650 mg Benzocaine/Menthol (Cepacol Sore Throat) 1 angelo MT Q2H PRN PRN Reason: Sore Throat Last Admin: 10/29/18 16:52 Dose: 1 angelo Doxycycline Hyclate (Doryx) 100 mg PO Q12 ENOC; Protocol Stop: 11/06/18 23:22 Last Admin: 10/30/18 09:48 Dose: 100 mg Enoxaparin Sodium (Lovenox) 40 mg SC DAILY [facility]; Protocol Last Admin: 10/30/18 09:47 Dose: 40 mg Ceftriaxone Sodium (Rocephin 1 Gram Ivpb) 1 gm in 100 mls @ 100 mls/hr IVPB DAILY [facility]; Protocol Last Admin: 10/30/18 09:47 Dose: 100 mls/hr Sodium Chloride (Sodium Chloride 0.9%) 1,000 mls @ 100 mls/hr IV .Q10H ENOC Last Admin: 10/29/18 09:42 Dose: 100 mls/hr Ketorolac Tromethamine (Toradol) 15 mg IVP Q6H PRN PRN Reason: Pain, moderate (4-7) Last Admin: 10/29/18 04:29 Dose: 15 mg Ondansetron HCl (Zofran Inj) 4 mg IVP Q4H PRN PRN Reason: Nausea/Vomiting Last Admin: 10/29/18 10:05 Dose: 4 mg Oxycodone/Acetaminophen (Percocet 5/325 Mg Tab) 1 tab PO Q6H PRN PRN Reason: Pain, severe (8-10) Stop: 10/31/18 21:50 Last Admin: 10/28/18 23:47 Dose: 1 tab Pantoprazole Sodium (Protonix Ec Tab) 40 mg PO DAILY ENOC Last Admin: 10/30/18 09:48 Dose: 40 mg Sodium Chloride (Fifty-Six Nasal [place]) 0 ml NS Q4H PRN PRN Reason: Nasal congestion - Labs Labs: 10/30/18 07:00 10/30/18 07:00 - Constitutional Appears: Non-toxic, No Acute Distress Additional comments: Appears uncomfortable - Head Exam Head Exam: ATRAUMATIC, NORMAL INSPECTION - Eye Exam Eye Exam: EOMI, Normal appearance Pupil Exam: NORMAL ACCOMODATION - ENT Exam ENT Exam: Mucous Membranes Moist - Neck Exam Neck exam: Positive for: Normal Inspection - Respiratory Exam Respiratory Exam: Clear to Auscultation Bilateral, NORMAL BREATHING PATTERN. absent: Rales, Rhonchi, Wheezes - Cardiovascular Exam Cardiovascular Exam: REGULAR RHYTHM, +S1, +S2. absent: Bradycardia, Tachycardia, Gallop, Rubs, Systolic Murmur - GI/Abdominal Exam GI & Abdominal Exam: Normal Bowel Sounds, Soft, Nontender. absent: Distended, Firm, Guarding - Extremities Exam Extremities exam: Positive for: normal inspection. Negative for: calf tenderness, pedal edema - Back Exam Back exam: absent: paraspinal tenderness, vertebral tenderness, CVA nontender - Neurological Exam Neurological exam: Alert, CN II-XII Intact, Oriented x3 - Psychiatric Exam Psychiatric exam: Normal Affect, Normal Mood - Skin Skin Exam: Dry, Intact, Normal Color, Warm Assessment and Plan - Assessment and Plan (Free Text) Assessment: Patient is a 28 year old female with a past medical history of nephrolithiasis and UTI, presenting with lower back pain and has been febrile Plan: Sepsis rule out PID -Suspect PID, rule out pyelonephritis vs. intraabdominal infection -Febrile at 104.4 on admission, HR: 132, WBC: 18.5. Fulfilled SIRS criteria -Was febrile overnight. Currently afebrile. However, does not fulfill SIRS criteria at this time -Abdominal/Pelvis CT: two small nonobstructing stones in the upper pole of the left kidney, mild HSM and fatty liver -Renal ultrasound: left nephrolithiasis -RPR negative, group A Beta Strep Ag negative -Blood culture and urine culture negative -Will follow up throat culture, HIV, chlamydia, gonorrhea -CXR and UA rule out pneumonia and UTI as sources of infection -Ordered transvaginal ultrasound to evaluate for PID -Continue with ceftriaxone and doxycycline to cover for gonorrhea and chlamydia for possible PID -Continue with toradol and percocet for pain. Will consider reducing dose as patient currently does not have pain. -Continue with tylenol 650 Q6PRN for fever -Continue with zofran 4 Q4PRN for nausea GI prophylaxis: protonix DVT prophylaxis: lovenox Patient plan discussed with Dr. Scales <Maria D Scales - Last Filed: 10/30/18 14:34> Objective - Vital Signs/Intake and Output Vital Signs (last 24 hours): Temp Pulse Resp BP Pulse Ox 97.6 F 91 H 20 135/82 100 10/30/18 06:00 10/30/18 06:00 10/30/18 06:00 10/30/18 06:00 10/30/18 06:00 Intake and Output: 10/30/18 10/30/18 06:59 18:59 Intake Total 1540 Balance 1540 - Medications Medications: Current Medications Acetaminophen (Tylenol 325mg Tab) 650 mg PO Q6H PRN PRN Reason: Pain, Mild (1-3) Last Admin: 10/30/18 11:20 Dose: 650 mg Benzocaine/Menthol (Cepacol Sore Throat) 1 angelo MT Q2H PRN PRN Reason: Sore Throat Last Admin: 10/29/18 16:52 Dose: 1 angelo Doxycycline Hyclate (Doryx) 100 mg PO Q12 ENOC; Protocol Stop: 11/06/18 23:22 Last Admin: 10/30/18 09:48 Dose: 100 mg Enoxaparin Sodium (Lovenox) 40 mg SC DAILY [facility]; Protocol Last Admin: 10/30/18 09:47 Dose: 40 mg Ceftriaxone Sodium (Rocephin 1 Gram Ivpb) 1 gm in 100 mls @ 100 mls/hr IVPB DAILY ENOC; Protocol Last Admin: 10/30/18 09:47 Dose: 100 mls/hr Sodium Chloride (Sodium Chloride 0.9%) 1,000 mls @ 100 mls/hr IV .Q10H ENOC Last Admin: 10/29/18 09:42 Dose: 100 mls/hr Ketorolac Tromethamine (Toradol) 15 mg IVP Q6H PRN PRN Reason: Pain, moderate (4-7) Last Admin: 10/29/18 04:29 Dose: 15 mg Ondansetron HCl (Zofran Inj) 4 mg IVP Q4H PRN PRN Reason: Nausea/Vomiting Last Admin: 10/29/18 10:05 Dose: 4 mg Oxycodone/Acetaminophen (Percocet 5/325 Mg Tab) 1 tab PO Q6H PRN PRN Reason: Pain, severe (8-10) Stop: 10/31/18 21:50 Last Admin: 10/28/18 23:47 Dose: 1 tab Pantoprazole Sodium (Protonix Ec Tab) 40 mg PO DAILY ENOC Last Admin: 10/30/18 09:48 Dose: 40 mg Sodium Chloride (Fifty-Six Nasal [place]) 0 ml NS Q4H PRN PRN Reason: Nasal congestion - Labs Labs: 10/30/18 07:00 10/30/18 07:00 Attending/Attestation - Attestation I have personally seen and examined this patient.: Yes I have fully participated in the care of the patient.: Yes I have reviewed all pertinent clinical information, including history, physical exam and plan: Yes Notes (Text): Patient seen and examined by me with resident at approximately at 9:10AM on 10/30/18. Case including HPI, physical exam, and assessment and plan discussed with resident. Agree with above with following additions/corrections. Patient is a 28-year-old female past medical history significant for nephrolithiasis and UTI that presented to the emergency room with lower back pain. Patient states she is feeling better today. Sore throat improved. Pain with swallowing improved. Back pain resolved. Patient denies any abdominal pain. No nausea or vomiting. Patient tolerating diet. No chest pain or shortness of breath. No headaches or dizziness. No dysuria or burning with urination. Patient denies diarrhea or constipation. Afebrile. Physical exam: General: Awake and alert lying in bed in no acute distress HEENT: Normocephalic, atraumatic. Extraocular muscles intact. Pupils equal and reactive, no scleral icterus. Oropharynx pink and moist. Enlarged tonsils. Neck supple. Cardiovascular: Regular rhythm. Normal S1 and S2. No murmurs, rubs, or gallops appreciated Pulmonary: Normal respiratory effort. No rhonchi, rales, or wheezing appreciated Gastrointestinal: Soft. Nondistended. Nontender. Positive bowel sounds all 4 quadrants. No guarding. Musculoskeletal: Moves all extremities. No calf tenderness. No edema appreciated Central nervous system: AAO x3. No focal deficits appreciated. Dermatologic: Skin warm and dry. Assessment and plan: Patient is a 28-year-old female past medical history significant for nephrolithiasis and UTI that presented to the emergency room with lower back pain. 1. SIRS. UA negative for UTI. Urine culture with no growth. Rule out STD. May be secondary to strep throat. Throat culture positive for beta hemolytic streptococcus A. Blood cultures with no growth. Fevers resolved. Leukocytosis downtrending. ID recommendations appreciated. Continue Rocephin and doxycycline. RPR nonreactive. CT abdomen and pelvis per radiologist showed no acute abdominal pelvic abnormality, 2 small nonobstructing stones in the upper pole of the left kidney, mild hepatosplenomegaly and fatty liver. Renal ultrasound per radiology showed nonobstructive subcentimeter left nephrolithiasis, no hydronephrosis. Test results discussed with patient. 2. Low back pain. Resolved. Continue to monitor. Case was discussed in detail with the patient regarding her diagnosis, test results, and treatment plan. All questions answered.
[2018-10-30] MEDS: Oxycodone/Acetaminophen 5/325 mg Tab PO PRN ×2 (11:14→16:42)
--- NOTE | 2018-10-31 02:20 | PN ---
DATE: 10/30/2018 SUBJECTIVE: The patient is in bed, in no acute distress, nontoxic. PHYSICAL EXAMINATION: VITAL SIGNS: On exam, temperature is 98, blood pressure is 105/70, respiratory rate of 18. HEENT: Unremarkable. NECK: Supple. LUNGS: Have decreased breath sounds. HEART: Normal S1, S2. ABDOMEN: Soft. LABORATORY DATA: Reveals a white count of 11,700, hemoglobin of 10. Chemistries reveal a BUN of 6, creatinine of 0.6. Urinalysis is noted. Serology is reviewed. Microbiology reveals beta-hemolytic A Streptococcus in the throat cultures and blood cultures negative, urine cultures negative. Review of orders reveals the patient to be on doxycycline and ceftriaxone. ASSESSMENT AND PLAN: This is a 28-year-old female with history of kidney stones, urinary tract infections, admitted with urinary tract infections with fevers with also group A Streptococcus pharyngitis and sepsis. We will continue observation and awaiting for chlamydia and gonorrhea workup. Sony Queen MD
[2018-10-31 06:50] LABS: BASO # 0.04 K/mm3 (0.0-2.0); BASO % 0.5 % (0.0-3.0); EOS # 0.1 (0.0-0.7); EOS % 0.8 % (1.5-5.0); HEMOGLOBIN 11.8 g/dL (12.0-16.0); LYMPH # 2.7 (1.2-3.4); LYMPH % 34.5 % (22.0-35.0); MEAN CELL VOLUME 87.8 fl (80.0-105.0); MEAN CORPUSCULAR HEMOGLOBIN 27.8 pg (25.0-35.0); MEAN CORPUSCULAR HGB CONC 31.6 g/dl (31.0-37.0); MEAN PLATELET VOLUME 10.2 fl (7.0-11.0); MONO # 0.8 (0.1-0.6); MONO % 10.3 % (1.0-6.0); RBC 4.25 10^6/uL (3.5-6.1); RED CELL DISTRIBUTION WIDTH 13.5 % (11.5-14.5); WHITE BLOOD COUNT 7.9 10^3/uL (4.5-11.0)
[2018-10-31 06:57] LABS: ALB/GLOB RATIO 0.9 (1.1-1.8); ALBUMIN 3.5 g/dL (3.0-4.8); ALT/SGPT 14 U/L (7-56); AST/SGOT 30 U/L (14-36); BLOOD UREA NITROGEN 7 mg/dL (7-21); GFR NON-AFRICAN AMERICAN > 60
[2018-10-31 08:39] VITALS: BP 122/81; PULSE 63; RESP 18; TEMP 98.3; O2SAT 95
[2018-10-31] MEDS: Enoxaparin 40 mg Syringe SC SCH (10:23)
[2018-10-31] MEDS: Pantoprazole 40 mg EC Tab PO SCH (10:23)
[2018-10-31] MEDS: cefTRIAXone 1 gm 1 GM/100 ML BAG IVPB SCH (10:27)
--- NOTE | 2018-10-31 12:46 | CP.PCM.DIS ---
<Valentin Rocha - Last Filed: 10/31/18 12:32> Provider - Provider Date of Admission: 10/30/18 08:48 Attending physician: Olivier Rivera MD Primary care physician: NO PRIMARY CARE PROVIDER Consults: 10/28/18 21:52 Physician Consult Routine Comment: Consulting Provider: Pito Wilson Consulting Physician: Pito Wilson Reason for Consult: leukocytosis, r/o pyelonephritis Time Spent in preparation of Discharge (in minutes): 60 Hospital Course - Lab Results Lab Results: Micro Results 10/28/18 18:20 Blood Blood Culture - Preliminary NO GROWTH AFTER 48 HOURS 10/28/18 18:02 Blood Blood Culture - Preliminary NO GROWTH AFTER 48 HOURS 10/28/18 20:20 Throat Group A Strep Throat Culture - Final Beta Hemolytic Streptococcus A 10/28/18 18:02 Urine Random Urine Culture - Final No Growth (<1,000 CFU/ML) Most Recent Lab Values WBC 7.9 10^3/uL (4.5-11.0) D 10/31/18 06:25 RBC 4.25 10^6/uL (3.5-6.1) 10/31/18 06:25 Hgb 11.8 g/dL (12.0-16.0) L 10/31/18 06:25 Hct 37.3 % (36.0-48.0) 10/31/18 06:25 MCV 87.8 fl (80.0-105.0) 10/31/18 06:25 MCH 27.8 pg (25.0-35.0) 10/31/18 06:25 MCHC 31.6 g/dl (31.0-37.0) 10/31/18 06:25 RDW 13.5 % (11.5-14.5) 10/31/18 06:25 Plt Count 264 10^3/uL (120.0-450.0) 10/31/18 06:25 MPV 10.2 fl (7.0-11.0) 10/31/18 06:25 Neut % (Auto) 53.9 % (50.0-68.0) 10/31/18 06:25 Lymph % (Auto) 34.5 % (22.0-35.0) 10/31/18 06:25 [place] % (Auto) 10.3 % (1.0-6.0) H 10/31/18 06:25 Eos % (Auto) 0.8 % (1.5-5.0) L 10/31/18 06:25 Baso % (Auto) 0.5 % (0.0-3.0) 10/31/18 06:25 Lymph # (Auto) 2.7 (1.2-3.4) 10/31/18 06:25 [place] # (Auto) 0.8 (0.1-0.6) H 10/31/18 06:25 Eos # (Auto) 0.1 (0.0-0.7) 10/31/18 06:25 Baso # (Auto) 0.04 K/mm3 (0.0-2.0) 10/31/18 06:25 Absolute Neuts (auto) 4.25 (1.4-6.5) 10/31/18 06:25 ESR 30 mm/hr (0.0-20.0) H 10/28/18 18:02 pO2 25 mm/Hg (30-55) L 10/28/18 18:00 VBG pH 7.38 (7.32-7.43) 10/28/18 18:00 VBG pCO2 39.0 (40-60) L 10/28/18 18:00 VBG HCO3 23.1 mmol/l (21-28) 10/28/18 18:00 VBG Total CO2 24.3 mmol.L (22-28) 10/28/18 18:00 VBG O2 Sat (Calc) 50.6 % (40-65) 10/28/18 18:00 VBG Base Excess -1.8 mmol/L (0.0-2.0) L 10/28/18 18:00 VBG Potassium 4.0 mmol/L (3.6-5.2) 10/28/18 18:00 Sodium 135.0 mmol/L (132-148) 10/28/18 18:00 Chloride 100.0 mmol/L (98-107) 10/28/18 18:00 Glucose 101 mg/dl (65-105) 10/28/18 18:00 Lactate 1.6 mmol/L (0.7-2.1) 10/28/18 18:00 FiO2 21.0 % 10/28/18 18:00 Sodium 141 mmol/L (132-148) 10/31/18 06:25 Potassium 4.3 mmol/L (3.6-5.0) 10/31/18 06:25 Chloride 107 mmol/L (98-107) 10/31/18 06:25 Carbon Dioxide 27 mmol/L (21-33) 10/31/18 06:25 Anion Gap 11 (10-20) 10/31/18 06:25 BUN 7 mg/dL (7-21) 10/31/18 06:25 Creatinine 0.6 mg/dl (0.7-1.2) L 10/31/18 06:25 Est GFR ( Amer) > 60 10/31/18 06:25 Est GFR (Non-Af Amer) > 60 10/31/18 06:25 Random Glucose 83 mg/dL (70-110) 10/31/18 06:25 Calcium 9.0 mg/dL (8.4-10.5) 10/31/18 06:25 Magnesium 1.3 mg/dL (1.7-2.2) L 10/29/18 07:00 Total Bilirubin 0.2 mg/dL (0.2-1.3) 10/31/18 06:25 AST 30 U/L (14-36) 10/31/18 06:25 ALT 14 U/L (7-56) 10/31/18 06:25 Alkaline Phosphatase 71 U/L (38-126) 10/31/18 06:25 C-Reactive Protein 203.50 mg/L (0.0-9.9) H 10/29/18 07:00 Total Protein 7.4 g/dL (5.8-8.3) 10/31/18 06:25 Albumin 3.5 g/dL (3.0-4.8) 10/31/18 06:25 Globulin 3.9 gm/dL 10/31/18 06:25 Albumin/Globulin Ratio 0.9 (1.1-1.8) L 10/31/18 06:25 Lipase 94 U/L (23-300) 10/28/18 18:02 Venous Blood Potassium 4.0 mmol/L (3.6-5.2) 10/28/18 18:00 Urine Color Yellow (YELLOW) 10/28/18 18:02 Urine Appearance Slight-cloudy (CLEAR) 10/28/18 18:02 Urine pH 6.0 (4.7-8.0) 10/28/18 18:02 Ur Specific [place] 1.025 (1.005-1.035) 10/28/18 18:02 Urine Protein Trace mg/dL (<30 mg/dL) H 10/28/18 18:02 Urine Glucose (UA) Negative mg/dL (NEGATIVE) 10/28/18 18:02 Urine Ketones 40 mg/dL (NEGATIVE) H 10/28/18 18:02 Urine Blood Trace-intact (NEGATIVE) H 10/28/18 18:02 Urine Nitrate Negative (NEGATIVE) 10/28/18 18:02 Urine Bilirubin Negative (NEGATIVE) 10/28/18 18:02 Urine Urobilinogen 0.2 E.U./dL (<1 E.U./dL) 10/28/18 18:02 Ur Leukocyte Esterase Trace Hima/uL (NEGATIVE) H 10/28/18 18:02 Urine RBC 0 - 2 /hpf (0-2) 10/28/18 18:02 Urine WBC 1 - 3 /hpf (0-6) 10/28/18 18:02 Ur Epithelial Cells 4 - 5 /hpf (0-5) 10/28/18 18:02 Urine HCG, Qual Negative (NEGATIVE) 10/30/18 22:35 RPR Nonreactive (NONREACTIVE) 10/29/18 07:00 HIV 1&2 Ag/Ab, 4th Gen Nonreactive (Nonreactive) 10/29/18 07:00 Grp A Beta Strep Ag Negative (NEGATIVE) 10/28/18 20:20 - Hospital Course Hospital Course: Valentin Rocha, PGY-1, Internal Medicine Discharge Summary for Dr. Rivera 28 year old female with past medical history of nephrolithiasis and UTI p resented with lower back pain that started prior to admission. Pain was stabbing, and located on both sided of the back. Patient has had right kidney stones in the past but pain felt different this time. She took tylenol at home without relief. She had fevers the night prior to arrival. 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 She denied any sick contacts at home or recent travels. She denied cough, nasal congestion, or sore throat. She is currently only sexually active with only. She denies protection and takes control pills. Upon admission, patient had fever of 104.4. She satisfied SIRS criteria at the time. Abdomen and pelvis CT showed no acute abdominal or pelvic abnormality. Two small nonobstructing stones were seen in the upper pole of the left kidney. There was mild hepatosplenomegaly and fatty liver. Chest X ray showed no acute findings. Renal ultrasound showed no acute findings in relation to her fever. Urinanalysis did not show any evidence of UTI. Blood culture and urine culture were negative. RPR and HIV were negative. Doxycycline and rocephin was started in the emergency department. She was started on tylenol, toradol, and percocet for pain as needed. Patient continued to have fever spiking 101.1 fever on 10/30, but abdominal pain and back pain improved on 10/30. Today, patient's pain completely improved and she was afebrile, however, she had multiple episodes of nausea and vomiting likely related to percocet. Percocet was stopped this morning and patient was able to tolerate food well. After talking to Dr. 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 Results of chlamydia and syphilis are not back at this time. Patient was also found to have beta hemolytic strep A on throat culture. This is being covered by ceftriaxone at this time. Patient was found to be stable and ready for discharge. Patient was told to follow up with PCP within 3-5 days. Patient was told to take doxycycline and augmentin for 7 days and acyclovir cream for 4 days for new lesions on right side of mouth. Patient was told to return to emergency department if she had any new or concerning symptoms. This is a brief summary of the events that transpired at the hospital. Please refer to hospital documentation for more information. Discharge diagnoses Sepsis rule out PID Group A strep infection Herpes I - Date & Time of H&P Date of H&P: 10/29/18 Time of H&P: 00:02 Discharge Exam - Head Exam Head Exam: ATRAUMATIC, NORMAL INSPECTION - Eye Exam Eye Exam: EOMI, PERRL - ENT Exam Additional comments: lesions on right side of mouth - Respiratory Exam Respiratory Exam: Clear to PA & Lateral, NORMAL BREATHING PATTERN - Cardiovascular Exam Cardiovascular Exam: REGULAR RHYTHM, RRR, +S1, +S2 - GI/Abdominal Exam GI & Abdominal Exam: Normal Bowel Sounds, Soft. absent: Tenderness - Extremities Exam Extremities exam: full ROM, normal capillary refill, normal inspection - Neurological Exam Neurological exam: Alert, CN II-XII Intact, Normal Gait, Oriented x3 - Psychiatric Exam Psychiatric exam: Normal Affect, Normal Mood - Skin Skin Exam: Dry, Intact, Normal Color Discharge Plan - Discharge Medications Prescriptions: Acyclovir 400 mg PO TID #21 tablet Amoxicillin/Clavulanate [Augmentin 875 MG-125 MG] 1 tab PO BID #14 tab Doxycycline Hyclate 100 mg PO BID #14 capsule - Follow Up Plan Condition: FAIR Disposition: HOME/ ROUTINE Instructions: Urinary Tract Infection, Adult (DC), Fever, Adult (DC) Additional Instructions: 1. Please follow up with your primary care doctor in [facility] within 3-5 days. 2. Please take all medications as prescribed. -Take augmentin 875/125 twice a day for 7 days -Take doxycycline 100 mg twice a day for 7 days -Take acyclovir 400 mg three times a day for 7 days 3. Please return to the emergency department if you have any new or concerning symptoms. Referrals: [facility] [Provider Group] PCP,NO [Primary Care Provider] - <Olivier Rivera - Last Filed: 11/01/18 14:38> Provider - Provider Date of Admission: 10/30/18 08:48 Attending physician: Olivier Rivera MD Primary care physician: DINAH PRIMARY CARE PROVIDER Consults: 10/28/18 21:52 Physician Consult Routine Comment: Consulting Provider: Pito Wilson Consulting Physician: Pito Wilson Reason for Consult: leukocytosis, r/o pyelonephritis Hospital Course - Lab Results Lab Results: Micro Results 10/28/18 18:20 Blood Blood Culture - Preliminary NO GROWTH AFTER 3 DAYS 10/28/18 18:02 Blood Blood Culture - Preliminary NO GROWTH AFTER 3 DAYS 10/28/18 20:20 Throat Group A Strep Throat Culture - Final Beta Hemolytic Streptococcus A 10/28/18 18:02 Urine Random Urine Culture - Final No Growth (<1,000 CFU/ML) Most Recent Lab Values WBC 7.9 10^3/uL (4.5-11.0) D 10/31/18 06:25 RBC 4.25 10^6/uL (3.5-6.1) 10/31/18 06:25 Hgb 11.8 g/dL (12.0-16.0) L 10/31/18 06:25 Hct 37.3 % (36.0-48.0) 10/31/18 06:25 MCV 87.8 fl (80.0-105.0) 10/31/18 06:25 MCH 27.8 pg (25.0-35.0) 10/31/18 06:25 MCHC 31.6 g/dl (31.0-37.0) 10/31/18 06:25 RDW 13.5 % (11.5-14.5) 10/31/18 06:25 Plt Count 264 10^3/uL (120.0-450.0) 10/31/18 06:25 MPV 10.2 fl (7.0-11.0) 10/31/18 06:25 Neut % (Auto) 53.9 % (50.0-68.0) 10/31/18 06:25 Lymph % (Auto) 34.5 % (22.0-35.0) 10/31/18 06:25 [place] % (Auto) 10.3 % (1.0-6.0) H 10/31/18 06:25 Eos % (Auto) 0.8 % (1.5-5.0) L 10/31/18 06:25 Baso % (Auto) 0.5 % (0.0-3.0) 10/31/18 06:25 Lymph # (Auto) 2.7 (1.2-3.4) 10/31/18 06:25 [place] # (Auto) 0.8 (0.1-0.6) H 10/31/18 06:25 Eos # (Auto) 0.1 (0.0-0.7) 10/31/18 06:25 Baso # (Auto) 0.04 K/mm3 (0.0-2.0) 10/31/18 06:25 Absolute Neuts (auto) 4.25 (1.4-6.5) 10/31/18 06:25 ESR 30 mm/hr (0.0-20.0) H 10/28/18 18:02 pO2 25 mm/Hg (30-55) L 10/28/18 18:00 VBG pH 7.38 (7.32-7.43) 10/28/18 18:00 VBG pCO2 39.0 (40-60) L 10/28/18 18:00 VBG HCO3 23.1 mmol/l (21-28) 10/28/18 18:00 VBG Total CO2 24.3 mmol.L (22-28) 10/28/18 18:00 VBG O2 Sat (Calc) 50.6 % (40-65) 10/28/18 18:00 VBG Base Excess -1.8 mmol/L (0.0-2.0) L 10/28/18 18:00 VBG Potassium 4.0 mmol/L (3.6-5.2) 10/28/18 18:00 Sodium 135.0 mmol/L (132-148) 10/28/18 18:00 Chloride 100.0 mmol/L (98-107) 10/28/18 18:00 Glucose 101 mg/dl (65-105) 10/28/18 18:00 Lactate 1.6 mmol/L (0.7-2.1) 10/28/18 18:00 FiO2 21.0 % 10/28/18 18:00 Sodium 141 mmol/L (132-148) 10/31/18 06:25 Potassium 4.3 mmol/L (3.6-5.0) 10/31/18 06:25 Chloride 107 mmol/L (98-107) 10/31/18 06:25 Carbon Dioxide 27 mmol/L (21-33) 10/31/18 06:25 Anion Gap 11 (10-20) 10/31/18 06:25 BUN 7 mg/dL (7-21) 10/31/18 06:25 Creatinine 0.6 mg/dl (0.7-1.2) L 10/31/18 06:25 Est GFR ( Amer) > 60 10/31/18 06:25 Est GFR (Non-Af Amer) > 60 10/31/18 06:25 Random Glucose 83 mg/dL (70-110) 10/31/18 06:25 Calcium 9.0 mg/dL (8.4-10.5) 10/31/18 06:25 Magnesium 1.3 mg/dL (1.7-2.2) L 10/29/18 07:00 Total Bilirubin 0.2 mg/dL (0.2-1.3) 10/31/18 06:25 AST 30 U/L (14-36) 10/31/18 06:25 ALT 14 U/L (7-56) 10/31/18 06:25 Alkaline Phosphatase 71 U/L (38-126) 10/31/18 06:25 C-Reactive Protein 203.50 mg/L (0.0-9.9) H 10/29/18 07:00 Total Protein 7.4 g/dL (5.8-8.3) 10/31/18 06:25 Albumin 3.5 g/dL (3.0-4.8) 10/31/18 06:25 Globulin 3.9 gm/dL 10/31/18 06:25 Albumin/Globulin Ratio 0.9 (1.1-1.8) L 10/31/18 06:25 Lipase 94 U/L (23-300) 10/28/18 18:02 Venous Blood Potassium 4.0 mmol/L (3.6-5.2) 10/28/18 18:00 Urine Color Yellow (YELLOW) 10/28/18 18:02 Urine Appearance Slight-cloudy (CLEAR) 10/28/18 18:02 Urine pH 6.0 (4.7-8.0) 10/28/18 18:02 Ur Specific [place] 1.025 (1.005-1.035) 10/28/18 18:02 Urine Protein Trace mg/dL (<30 mg/dL) H 10/28/18 18:02 Urine Glucose (UA) Negative mg/dL (NEGATIVE) 10/28/18 18:02 Urine Ketones 40 mg/dL (NEGATIVE) H 10/28/18 18:02 Urine Blood Trace-intact (NEGATIVE) H 10/28/18 18:02 Urine Nitrate Negative (NEGATIVE) 10/28/18 18:02 Urine Bilirubin Negative (NEGATIVE) 10/28/18 18:02 Urine Urobilinogen 0.2 E.U./dL (<1 E.U./dL) 10/28/18 18:02 Ur Leukocyte Esterase Trace Hima/uL (NEGATIVE) H 10/28/18 18:02 Urine RBC 0 - 2 /hpf (0-2) 10/28/18 18:02 Urine WBC 1 - 3 /hpf (0-6) 10/28/18 18:02 Ur Epithelial Cells 4 - 5 /hpf (0-5) 10/28/18 18:02 Urine HCG, Qual Negative (NEGATIVE) 10/30/18 22:35 RPR Nonreactive (NONREACTIVE) 10/29/18 07:00 HIV 1&2 Ag/Ab, 4th Gen Nonreactive (Nonreactive) 10/29/18 07:00 Grp A Beta Strep Ag Negative (NEGATIVE) 10/28/18 20:20 Attending/Attestation - Attestation I have personally seen and examined this patient.: Yes I have fully participated in the care of the patient.: Yes I have reviewed all pertinent clinical information, including history, physical exam and plan: Yes Notes (Text): 11/01/18 14:32 Attending note: patient seen and examined with resident. Denies any fever and chills. Denies any abdominal pain, nausea and vomiting. tolerating diet. Patient is a 28-year-old female past medical history significant for nephrolithiasis and UTI that presented to the emergency room with lower back pain. 1. Abdominal pain/SIRS. UA negative for UTI. Urine culture with no growth. May be secondary to strep throat. Throat culture positive for beta hemolytic streptococcus A. Blood cultures with no growth. Fevers resolved. Leukocytosis resolved. ID recommendations appreciated. Treated with Rocephin and doxycycline. HIV, RPR nonreactive. CT abdomen and pelvis per showed no acute abdominal pelvic abnormality, 2 small nonobstructing stones in the upper pole of the left kidney, mild hep atosplenomegaly and fatty liver. Renal ultrasound per radiology showed nonobstructive subcentimeter left nephrolithiasis, no hydronephrosis. Test results discussed with patient. Patient will be discharged home with augmentin and doxycycline. Chlamydia and gonorrhea pending. 2. Herpes simplex lesion: started on acyclovir. discharge home today. follow up with [facility]. Follow up with [facility] in 1 week. 11/01/18 14:38
--- NOTE | 2018-10-31 18:51 | US ---
Date of service: 10/31/2018 HISTORY: Fever, back pain, leukocytosis, urinary tract infection. LMP: Unknown COMPARISON: 10/22/2016. TECHNIQUE: Transvaginal only. Real -time technique with 2D, duplex and color Doppler FINDINGS: UTERUS: Measures 4.5 x 5.8 x 8.8 cm. Normal in size and appearance. No fibroid or other mass lesion seen. ENDOMETRIUM: Measures 6.1 mm in diameter. No ultrasound findings to suggest gestational sac, fluid, debris, mass or polyp or other pathologic process within the endometrium. CERVIX: No cervical abnormality identified. RIGHT OVARY: Measures 1.2 x 2.6 x 6.7 cm. No solid mass. Normal flow. Multiple subcentimeter follicles. LEFT OVARY: Measures 1.5 x 2.8 x 2.9 cm. No solid mass. Normal flow. Multiple subcentimeter follicles. FREE FLUID: Moderate volume free fluid noted. OTHER FINDINGS: None. IMPRESSION: Unremarkable uterus, endometrial echo complex and adnexa. Moderate volume fluid in the cul-de-sac.
--- NOTE | 2018-10-31 21:10 | PN ---
DATE: 10/31/2018 SUBJECTIVE: The patient is in bed, in no acute distress, nontoxic. PHYSICAL EXAMINATION: VITAL SIGNS: Temperature is 98, blood pressure is 120/80, respiratory rate of 18. HEENT: Unremarkable. NECK: Supple. LUNGS: Decreased breath sounds. HEART: Normal S1 and S2. ABDOMEN: Soft. LABORATORY EXAMINATION: Reveals a white count of 7.9. Chemistries are noted. Urinalysis is noted. HIV is negative. RPR is negative. Microbiology reveals group A Strep, beta-hemolytic Strep in the throat culture. ASSESSMENT AND PLAN: A 28-year-old female who was seen earlier this morning in room 370, bed two, with a history of kidney stones and urinary tract infection; admitted with urinary tract infection, fevers, group A Streptococcus pharyngitis and sepsis. Continue with oral antibiotics with Augmentin and doxycycline, follow up remaining results as outpatient, for a total of 7 to 10 days. Sony Queen MD
== END 2018-10-31 13:55 | disposition home or self-care (01) | DRG 901 ==
LOC: ED 16:46 → ERH 19:18 → 3RSO 20:33 → OBSVTOIN 10-30 08:48
PROVIDERS: ADMIT Internal Medicine; ATTEND Internal Medicine
DX: A41.9 Sepsis, unspecified organism (principal); J02.0 Streptococcal pharyngitis; B00.9 Herpesviral infection, unspecified; K76.0 Fatty (change of) liver, not elsewhere classified; N20.0 Calculus of kidney; R16.2 Hepatomegaly with splenomegaly, not elsewhere classified; Z87.440 Personal history of urinary (tract) infections; Z87.442 Personal history of urinary calculi